=== PATIENT | female | born 1970 | race Caucasian/White ===

== ENCOUNTER → 2019-01-10 | Outpatient (CLI) | payer OTHER ==
[2013-07-09 14:47] VITALS: BP 96/62
[~2019-01-10] MED LIST: ABILIFY5 MG PO; AIMOVIG AU70 MG/1 ML SQ; CORGARD40 MG PO; CYCLOBENZAPRINE10 M1 PO; KETOROLAC TROME10 MG PO; LAMICTAL200 MG PO; LEXAPRO20 MG PO; MELATIN 3 MG-11 TAB PO; METHOCARBAMOL500 MG PO; METOPROLOL SUC100 M1 PO; NATURE'S BLEND400 I1 PO; NEURONTIN400 M1 PO; PROMETHAZINE12.5 M5 PO; RIZATRIPTAN BEN10 MG PO; ULTRAM50 M1 PO; VITAMIN B12100 MCG PO; ZANTAC 150150 MG PO; ZANTAC150 M1 PO; ZOFRAN4 M1 PO
[2019-01-10 15:35] LABS: HEMATOCRIT 36.6 % (37.0-47.0); HEMOGLOBIN 11.1 g/dL (12.5-16.0); RED BLOOD COUNT 4.82 M/mm3 (4.10-5.30); WHITE BLOOD COUNT 11.9 K/mm3 (4.8-10.8)
[2019-01-10 15:40] LABS: RED CELL DISTRIBUTION WIDTH 18.6 % (11.5-14.5)
[2019-01-10 15:43] LABS: ALBUMIN 3.8 g/dL (3.5-5.0); CALCIUM 9.3 mg/dL (8.4-10.2); POTASSIUM 4.1 mmol/L (3.6-5.0); TOTAL BILIRUBIN 0.4 mg/dL (0.2-1.3); TOTAL PROTEIN 6.6 g/dL (6.3-8.2)
== END ==
LOC: LAB 13:49
PROVIDERS: Family Medicine
DX: G44.51 Hemicrania continua (principal)

== ENCOUNTER → 2019-01-24 | Outpatient (CLI) | payer OTHER ==
[2019-01-20 16:25] VITALS: BP 117/65
[~2019-01-24] MED LIST changes: +HYDROXYZINE HYD50 M1 PO; +KLONOPIN 1MG1 MG PO; +LAMICTAL150 MG PO; -LAMICTAL200 MG PO; +LEXAPRO20 M1 PO; +MAXALT10 M2 PO; +NATURAL IRON65 MG PO; +VITAMIN C500 M7 PO
[2019-01-24 13:10] LABS: HEMATOCRIT 37.2 % (37.0-47.0); HEMOGLOBIN 11.2 g/dL (12.5-16.0); MEAN PLATELET VOLUME 10.3 fl (7.4-10.4); RED BLOOD COUNT 4.87 M/mm3 (4.10-5.30); WHITE BLOOD COUNT 10.7 K/mm3 (4.8-10.8)
[2019-01-24 13:16] LABS: ALBUMIN 3.8 g/dL (3.5-5.0); CALCIUM 8.8 mg/dL (8.4-10.2); POTASSIUM 3.7 mmol/L (3.6-5.0); TOTAL BILIRUBIN 0.3 mg/dL (0.2-1.3); TOTAL PROTEIN 6.9 g/dL (6.3-8.2)
[2019-01-24 13:17] LABS: RED CELL DISTRIBUTION WIDTH 18.5 % (11.5-14.5)
== END ==
LOC: LAB 12:24
PROVIDERS: Family Medicine
DX: G44.51 Hemicrania continua (principal)

== ENCOUNTER → 2019-02-07 | Outpatient (CLI) | payer OTHER ==
[2019-02-03 17:00] VITALS: BP 126/76
[~2019-02-07] MED LIST changes: -HYDROXYZINE HYD50 M1 PO; -KLONOPIN 1MG1 MG PO; -LEXAPRO20 M1 PO; -MAXALT10 M2 PO; -VITAMIN C500 M7 PO
[2019-02-07 15:12] LABS: HEMATOCRIT 39.9 % (37.0-47.0); HEMOGLOBIN 12.3 g/dL (12.5-16.0); MEAN PLATELET VOLUME 10.6 fl (7.4-10.4); RED BLOOD COUNT 5.26 M/mm3 (4.10-5.30); WHITE BLOOD COUNT 13.4 K/mm3 (4.8-10.8)
[2019-02-07 15:15] LABS: ALBUMIN 4.2 g/dL (3.5-5.0); AST-SGOT 19 U/L (14-36); CALCIUM 9.4 mg/dL (8.4-10.2); CARBON DIOXIDE 26 mmol/L (22-30); GLUCOSE 95 mg/dL (65-105); SODIUM 139 mmol/L (137-145); TOTAL BILIRUBIN 0.4 mg/dL (0.2-1.3); TOTAL PROTEIN 7.2 g/dL (6.3-8.2)
[2019-02-07 15:23] LABS: ALT/SGPT < 3 U/L (9-52)
== END ==
LOC: LAB 14:11
PROVIDERS: Family Medicine
DX: G44.51 Hemicrania continua (principal); Z79.899 Other long term (current) drug therapy

== ENCOUNTER → 2019-02-17 | Outpatient (CLI) | payer OTHER ==
[2019-02-14 16:56] VITALS: BP 117/77
[~2019-02-17] MED LIST changes: +HYDROXYZINE HYD50 M1 PO; +KLONOPIN 1MG1 MG PO; +LEXAPRO20 M1 PO; +MAXALT10 M2 PO; +VITAMIN C500 M7 PO
[2019-02-17 09:14] LABS: BASO # 0.1 (0.02-0.10); EOS # 0.2 (0.04-0.40); EOS % 2.1 % (1.0-5.0); HEMATOCRIT 38.6 % (37.0-47.0); HEMOGLOBIN 11.8 g/dL (12.5-16.0); LYMPH# 3.2 (1.50-4.00); MEAN CELL VOLUME 77 fl (78-100); MEAN CORPUSCULAR HGB CONC 31 g/dL (33-37); MEAN PLATELET VOLUME 10.8 fl (7.4-10.4); MONO # 0.5 (0.20-0.80); NEU # 6.8 (1.40-6.50); PLATELET COUNT 258 K/mm3 (130-400); RED BLOOD COUNT 5.04 M/mm3 (4.10-5.30); WHITE BLOOD COUNT 10.7 K/mm3 (4.8-10.8)
[2019-02-17 09:28] LABS: ALBUMIN 4.1 g/dL (3.5-5.0); CALCIUM 9.3 mg/dL (8.4-10.2); TOTAL BILIRUBIN 0.3 mg/dL (0.2-1.3); TOTAL PROTEIN 7.2 g/dL (6.3-8.2)
[2019-02-17 09:37] LABS: MEAN CORPUSCULAR HEMOGLOBIN 23 pg (27-31); RED CELL DISTRIBUTION WIDTH 18.1 % (11.5-14.5)
== END ==
LOC: LAB 08:20
PROVIDERS: Family Medicine
DX: G44.51 Hemicrania continua (principal); Z79.899 Other long term (current) drug therapy

== ENCOUNTER → 2019-03-03 | Outpatient (CLI) | payer OTHER ==
[2019-02-28 16:37] VITALS: BP 116/71
[2019-03-03 15:09] LABS: HEMATOCRIT 38.1 % (37.0-47.0); HEMOGLOBIN 11.7 g/dL (12.5-16.0); MEAN PLATELET VOLUME 10.3 fl (7.4-10.4); RED BLOOD COUNT 4.93 M/mm3 (4.10-5.30); RED CELL DISTRIBUTION WIDTH 17.7 % (11.5-14.5); WHITE BLOOD COUNT 13.2 K/mm3 (4.8-10.8)
[2019-03-03 15:56] LABS: CALCIUM 9.5 mg/dL (8.4-10.2); POTASSIUM 4.2 mmol/L (3.6-5.0); TOTAL BILIRUBIN 0.4 mg/dL (0.2-1.3); TOTAL PROTEIN 7.1 g/dL (6.3-8.2)
== END ==
LOC: LAB 14:08
PROVIDERS: Family Medicine
DX: G44.51 Hemicrania continua (principal)

== ENCOUNTER → 2019-03-15 | Outpatient (CLI) | payer OTHER ==
[2019-03-10 14:04] VITALS: BP 125/76
[2019-03-15 14:56] LABS: HEMATOCRIT 41.8 % (37.0-47.0); HEMOGLOBIN 12.6 g/dL (12.5-16.0); MEAN PLATELET VOLUME 10.4 fl (7.4-10.4); RED BLOOD COUNT 5.39 M/mm3 (4.10-5.30); RED CELL DISTRIBUTION WIDTH 17.3 % (11.5-14.5); WHITE BLOOD COUNT 16.9 K/mm3 (4.8-10.8)
[2019-03-15 15:01] LABS: CALCIUM 8.9 mg/dL (8.4-10.2); POTASSIUM 4.4 mmol/L (3.6-5.0); TOTAL BILIRUBIN 0.4 mg/dL (0.2-1.3); TOTAL PROTEIN 7.2 g/dL (6.3-8.2)
== END ==
LOC: LAB 13:53
PROVIDERS: Family Medicine
DX: Z79.899 Other long term (current) drug therapy (principal)

== ENCOUNTER → 2019-03-29 | Outpatient (CLI) | payer OTHER ==
[2019-03-24 16:30] VITALS: BP 112/76
[~2019-03-29] MED LIST changes: +VICTOZA 3-0.6 MG/0.1 SQ
[2019-03-29 15:32] LABS: ALBUMIN 4.4 g/dL (3.5-5.0); CALCIUM 9.5 mg/dL (8.4-10.2); POTASSIUM 3.9 mmol/L (3.6-5.0); TOTAL BILIRUBIN 0.6 mg/dL (0.2-1.3); TOTAL PROTEIN 7.7 g/dL (6.3-8.2)
[2019-03-29 15:43] LABS: HEMATOCRIT 42.9 % (37.0-47.0); HEMOGLOBIN 13.2 g/dL (12.5-16.0); MEAN PLATELET VOLUME 10.4 fl (7.4-10.4); RED BLOOD COUNT 5.49 M/mm3 (4.10-5.30); RED CELL DISTRIBUTION WIDTH 17.1 % (11.5-14.5); WHITE BLOOD COUNT 12.1 K/mm3 (4.8-10.8)
== END ==
LOC: LAB 14:03
PROVIDERS: Family Medicine
DX: G44.51 Hemicrania continua (principal)

== ENCOUNTER 2019-04-07 13:58 | Outpatient (RCR) | payer OTHER ==
[2019-01-10 14:07] VITALS: BP 109/89
[2019-01-10 16:45] VITALS: BP 115/71
[2019-01-13 13:56] VITALS: BP 132/85
[2019-01-13 16:04] VITALS: BP 144/83
[2019-01-17 14:22] VITALS: BP 135/85
[2019-01-17 17:01] VITALS: BP 133/86
[2019-01-20 14:15] VITALS: BP 120/68
[2019-01-20 16:25] VITALS: BP 117/65
[2019-01-24 13:06] VITALS: BP 122/64
[2019-01-24 14:55] VITALS: BP 125/77
[2019-01-31 15:30] VITALS: BP 142/88
[2019-01-31 18:01] VITALS: BP 132/85
[2019-02-03 15:07] VITALS: BP 110/66
[2019-02-03 16:54] LABS: HEMATOCRIT 38.7 % (37.0-47.0); HEMOGLOBIN 11.6 g/dL (12.5-16.0); MEAN PLATELET VOLUME 11.3 fl (7.4-10.4); RED BLOOD COUNT 5.03 M/mm3 (4.10-5.30); RED CELL DISTRIBUTION WIDTH 17.9 % (11.5-14.5); WHITE BLOOD COUNT 14.7 K/mm3 (4.8-10.8)
[2019-02-03 16:56] LABS: CALCIUM 9.1 mg/dL (8.4-10.2); POTASSIUM 4.1 mmol/L (3.6-5.0); TOTAL BILIRUBIN 0.4 mg/dL (0.2-1.3); TOTAL PROTEIN 7.1 g/dL (6.3-8.2)
[2019-02-03 17:00] VITALS: BP 126/76
[2019-02-07 14:25] VITALS: BP 138/78
[2019-02-07 17:25] VITALS: BP 116/67
[2019-02-10 15:02] VITALS: BP 131/90
[2019-02-10 17:16] VITALS: BP 114/72
[2019-02-14 15:20] VITALS: BP 125/78
[2019-02-14 16:56] VITALS: BP 117/77
[2019-02-17 08:30] VITALS: BP 130/78
[2019-02-17 10:45] VITALS: BP 132/83
[2019-02-22 14:16] VITALS: BP 119/77
[2019-02-22 15:57] VITALS: BP 125/79
[2019-02-24 15:31] VITALS: BP 128/68
[2019-02-24 17:21] VITALS: BP 131/72
[2019-02-28 14:46] VITALS: BP 118/73
[2019-02-28 16:37] VITALS: BP 116/71
[2019-03-03 14:19] VITALS: BP 137/79
[2019-03-03 17:00] VITALS: BP 129/76
[2019-03-07 14:51] VITALS: BP 127/95
[2019-03-10 14:04] VITALS: BP 125/76
[2019-03-15 14:15] VITALS: BP 140/90
[2019-03-15 14:20] VITALS: BP 140/89
[2019-03-15 17:00] VITALS: BP 136/78
[2019-03-17 16:30] VITALS: BP 129/79
[2019-03-17 18:30] VITALS: BP 118/72
[2019-03-17 19:45] VITALS: BP 112/69
[2019-03-21 14:09] VITALS: BP 137/80
[2019-03-21 16:00] VITALS: BP 116/66
[2019-03-24 14:49] VITALS: BP 132/82
[2019-03-24 16:30] VITALS: BP 112/76
[2019-03-29 14:15] VITALS: BP 139/85
[2019-03-29 16:25] VITALS: BP 124/76
[2019-04-01 14:14] VITALS: BP 125/74
[2019-04-01 16:38] VITALS: BP 133/64
[2019-04-04 15:13] VITALS: BP 129/86
[2019-04-04 15:14] VITALS: BP 129/86
[2019-04-04 17:18] VITALS: BP 125/81
[~2019-04-07] VITALS: Ht 167.6 cm; Wt 100.0 kg
[2019-04-07 14:11] VITALS: BP 135/83
[2019-04-07 16:30] VITALS: BP 137/72
== END 2019-04-10 | disposition still patient (30) ==
LOC: AMSURD
PROVIDERS: Family Medicine
DX: G44.51 Hemicrania continua (principal)
CPT/HCPCS: J1200; J1644; J1885; J2550; J3475; J7040

== ENCOUNTER → 2019-04-11 | Outpatient (CLI) | payer OTHER ==
[2019-04-07 16:30] VITALS: BP 137/72
[2019-04-11 16:12] LABS: HEMATOCRIT 42.9 % (37.0-47.0); HEMOGLOBIN 13.1 g/dL (12.5-16.0); MEAN PLATELET VOLUME 10.6 fl (7.4-10.4); RED BLOOD COUNT 5.44 M/mm3 (4.10-5.30); RED CELL DISTRIBUTION WIDTH 16.8 % (11.5-14.5); WHITE BLOOD COUNT 12.8 K/mm3 (4.8-10.8)
[2019-04-11 16:22] LABS: ALBUMIN 3.9 g/dL (3.5-5.0); CALCIUM 9.8 mg/dL (8.4-10.2); POTASSIUM 4.4 mmol/L (3.5-5.1); TOTAL BILIRUBIN 0.4 mg/dL (0.2-1.2); TOTAL PROTEIN 7.4 g/dL (6.4-8.3)
== END ==
LOC: LAB 14:08
PROVIDERS: Family Medicine
DX: G44.51 Hemicrania continua (principal)

== ENCOUNTER → 2019-04-26 | Outpatient (CLI) | payer OTHER ==
[2019-04-21 16:38] VITALS: BP 102/64
[2019-04-26 16:17] LABS: BASO # 0.1 (0.02-0.10); EOS # 0.3 (0.04-0.40); EOS % 2.2 % (1.0-5.0); HEMATOCRIT 41.3 % (37.0-47.0); HEMOGLOBIN 12.9 g/dL (12.5-16.0); LYMPH# 3.7 (1.50-4.00); MEAN CELL VOLUME 79 fl (78-100); MEAN CORPUSCULAR HEMOGLOBIN 25 pg (27-31); MEAN CORPUSCULAR HGB CONC 31 g/dL (33-37); MEAN PLATELET VOLUME 10.7 fl (7.4-10.4); MONO # 0.6 (0.20-0.80); NEU # 7.3 (1.40-6.50); PLATELET COUNT 276 K/mm3 (130-400); RED BLOOD COUNT 5.25 M/mm3 (4.10-5.30); RED CELL DISTRIBUTION WIDTH 16.9 % (11.5-14.5)
[2019-04-26 16:44] LABS: ALBUMIN 3.7 g/dL (3.5-5.0); CALCIUM 9.5 mg/dL (8.4-10.2); POTASSIUM 3.9 mmol/L (3.5-5.1); TOTAL BILIRUBIN 0.2 mg/dL (0.2-1.2); TOTAL PROTEIN 6.1 g/dL (6.4-8.3)
== END ==
LOC: LAB 15:30
PROVIDERS: Family Medicine
DX: G44.51 Hemicrania continua (principal)

== ENCOUNTER → 2019-05-09 | Outpatient (CLI) | payer OTHER ==
[2019-05-05 16:12] VITALS: BP 125/80
[2019-05-09 14:58] LABS: BASO # 0.1 (0.02-0.10); EOS # 0.2 (0.04-0.40); EOS % 2.6 % (1.0-5.0); HEMATOCRIT 40.4 % (37.0-47.0); HEMOGLOBIN 12.4 g/dL (12.5-16.0); LYMPH# 2.9 (1.50-4.00); MEAN CELL VOLUME 80 fl (78-100); MEAN CORPUSCULAR HEMOGLOBIN 25 pg (27-31); MEAN CORPUSCULAR HGB CONC 31 g/dL (33-37); MEAN PLATELET VOLUME 10.9 fl (7.4-10.4); MONO # 0.5 (0.20-0.80); NEU # 5.1 (1.40-6.50); PLATELET COUNT 287 K/mm3 (130-400); RED BLOOD COUNT 5.04 M/mm3 (4.10-5.30); WHITE BLOOD COUNT 8.9 K/mm3 (4.8-10.8)
[2019-05-09 15:18] LABS: ALBUMIN 3.7 g/dL (3.5-5.0); CALCIUM 9.4 mg/dL (8.3-10.5); POTASSIUM 3.7 mmol/L (3.5-5.1); TOTAL BILIRUBIN 0.3 mg/dL (0.2-1.2); TOTAL PROTEIN 6.6 g/dL (6.4-8.3)
== END ==
LOC: AMSURD 14:14 → LAB 14:14
PROVIDERS: Family Medicine
DX: G44.51 Hemicrania continua (principal)

== ENCOUNTER → 2019-05-23 | Outpatient (CLI) | payer OTHER ==
[2019-05-19 17:18] VITALS: BP 123/74
[2019-05-23 16:31] LABS: BASO # 0.1 (0.02-0.10); EOS # 0.3 (0.04-0.40); EOS % 2.3 % (1.0-5.0); HEMATOCRIT 37.4 % (37.0-47.0); HEMOGLOBIN 11.5 g/dL (12.5-16.0); LYMPH# 3.6 (1.50-4.00); MEAN CELL VOLUME 80 fl (78-100); MEAN CORPUSCULAR HEMOGLOBIN 25 pg (27-31); MEAN CORPUSCULAR HGB CONC 31 g/dL (33-37); MEAN PLATELET VOLUME 10.5 fl (7.4-10.4); MONO # 0.9 (0.20-0.80); NEU # 7.5 (1.40-6.50); PLATELET COUNT 242 K/mm3 (130-400); RED BLOOD COUNT 4.65 M/mm3 (4.10-5.30); WHITE BLOOD COUNT 12.4 K/mm3 (4.8-10.8)
[2019-05-23 16:52] LABS: ALBUMIN 3.6 g/dL (3.5-5.0)
[2019-05-23 16:53] LABS: POTASSIUM 4.2 mmol/L (3.5-5.1)
[2019-05-23 16:54] LABS: CALCIUM 9.6 mg/dL (8.3-10.5)
[2019-05-23 16:55] LABS: TOTAL PROTEIN 6.6 g/dL (6.4-8.3)
[2019-05-23 16:57] LABS: TOTAL BILIRUBIN 0.3 mg/dL (0.2-1.2)
== END ==
LOC: LAB 14:51
PROVIDERS: Family Medicine
DX: G44.51 Hemicrania continua (principal)

== ENCOUNTER → 2019-06-10 | Outpatient (CLI) | payer OTHER ==
[2019-06-03 18:20] VITALS: BP 111/67
[2019-06-10 15:21] LABS: HEMATOCRIT 37.4 % (37.0-47.0); HEMOGLOBIN 11.6 g/dL (12.5-16.0); MEAN PLATELET VOLUME 10.2 fl (7.4-10.4); RED BLOOD COUNT 4.66 M/mm3 (4.10-5.30); RED CELL DISTRIBUTION WIDTH 15.5 % (11.5-14.5); WHITE BLOOD COUNT 9.3 K/mm3 (4.8-10.8)
[2019-06-10 15:23] LABS: ALBUMIN 3.8 g/dL (3.5-5.0)
[2019-06-10 15:24] LABS: POTASSIUM 3.9 mmol/L (3.5-5.1)
[2019-06-10 15:25] LABS: CALCIUM 9.5 mg/dL (8.3-10.5)
[2019-06-10 15:26] LABS: TOTAL PROTEIN 6.7 g/dL (6.4-8.3)
[2019-06-10 15:28] LABS: TOTAL BILIRUBIN 0.6 mg/dL (0.2-1.2)
== END ==
LOC: LAB 14:59
PROVIDERS: Family Medicine
DX: G44.51 Hemicrania continua (principal)

== ENCOUNTER → 2019-06-27 | Outpatient (CLI) | payer OTHER ==
[2019-06-16 11:44] VITALS: BP 168/78
[2019-06-27 16:13] LABS: BASO # 0.1 (0.02-0.10); EOS # 0.1 (0.04-0.40); EOS % 0.9 % (1.0-5.0); HEMATOCRIT 39.5 % (37.0-47.0); HEMOGLOBIN 12.1 g/dL (12.5-16.0); LYMPH# 2.7 (1.50-4.00); MEAN CELL VOLUME 80 fl (78-100); MEAN CORPUSCULAR HEMOGLOBIN 25 pg (27-31); MEAN CORPUSCULAR HGB CONC 31 g/dL (33-37); MONO # 0.5 (0.20-0.80); NEU # 7.2 (1.40-6.50); PLATELET COUNT 265 K/mm3 (130-400); RED BLOOD COUNT 4.91 M/mm3 (4.10-5.30); RED CELL DISTRIBUTION WIDTH 14.8 % (11.5-14.5); WHITE BLOOD COUNT 10.6 K/mm3 (4.8-10.8)
[2019-06-27 16:22] LABS: POTASSIUM 3.9 mmol/L (3.5-5.1)
[2019-06-27 16:23] LABS: CALCIUM 9.4 mg/dL (8.3-10.5)
[2019-06-27 16:24] LABS: TOTAL PROTEIN 6.9 g/dL (6.4-8.3)
[2019-06-27 16:26] LABS: TOTAL BILIRUBIN 0.6 mg/dL (0.2-1.2)
== END ==
LOC: LAB 15:00
PROVIDERS: Family Medicine
DX: G44.51 Hemicrania continua (principal)

== ENCOUNTER → 2019-07-10 | Outpatient (RCR) | payer OTHER ==
[2019-04-11 14:22] VITALS: BP 121/87
--- NOTE | 2019-04-11 15:30 | NUR ---
noted to still have some mild swelling at port sight - no redness. Incision well approximated. Difficulty in obtaining blood from port today. 3/4 inch go needle inserted w/ return of serous type fluid w/ blood tinge noted by one nurse. This nurse used 1" go needle and able to access with good return of blood at first but unable to draw quick enough for lab. Lab personnel called to draw lab peripherally and pt agreeable. Right chest port flushed easily w/ NS and blood return checked again and noted right before infusions begun. Pt denies any discomforts at port site.
[2019-04-11 17:06] VITALS: BP 94/59
--- NOTE | 2019-04-11 17:10 | NUR ---
Port deassessed without difficulty and bandaid applied over site.
--- NOTE | 2019-04-11 17:10 | NUR ---
BP recheck 101/67 with sitting up.
[2019-04-14 13:50] VITALS: BP 113/70
[2019-04-14 17:45] VITALS: BP 135/89
[2019-04-18 14:25] VITALS: BP 102/60
[2019-04-18 16:10] VITALS: BP 121/78
[2019-04-21 14:50] VITALS: BP 107/47
[2019-04-21 16:38] VITALS: BP 102/64
[2019-04-26 16:04] VITALS: BP 90/47
[2019-04-26 17:50] VITALS: BP 89/55
[2019-04-28 14:08] VITALS: BP 115/79
[2019-04-28 17:50] VITALS: BP 122/82
--- NOTE | 2019-05-02 14:45 | NUR ---
Port accessed by Mary Carmen Elizondo RN. and care provided for this pt by Mary Carmen Elizondo throughout the pt stay.
[2019-05-02 16:43] VITALS: BP 99/63
[2019-05-02 17:59] VITALS: BP 110/72
[2019-05-05 14:20] VITALS: BP 133/66
--- NOTE | 2019-05-05 15:51 | NUR ---
CALL TO AT THIS TIME TO DISCUSS PATIENTS SYMPTOMS, INCREASING PAIN, INCREASE IN NEED FOR PRN PAIN CONTROL, WELL FREQUENT ER VISITS FOR PAIN INCLUDING HEADACHES AND CHEST PAIN, STATES HE IS AWARE AND IS IN CLOSE CONTACT WITH PATIENT, WE ARE TO RESUME ALL MEDS UNTIL WE HEAR DIFFERENTLY
[2019-05-05 16:12] VITALS: BP 125/80
[2019-05-09 14:11] VITALS: BP 102/70
[2019-05-09 16:22] VITALS: BP 91/55
[2019-05-13 11:49] VITALS: BP 106/65
[2019-05-13 13:40] VITALS: BP 101/51
[2019-05-16 17:13] VITALS: BP 111/65
[2019-05-16 17:51] VITALS: BP 118/72
[2019-05-19 15:23] VITALS: BP 118/66
[2019-05-19 17:18] VITALS: BP 123/74
[2019-05-23 15:06] VITALS: BP 117/81
[2019-05-23 16:49] VITALS: BP 104/65
[2019-05-23 17:18] VITALS: BP 107/68
[2019-05-23 18:32] VITALS: BP 103/67
[2019-05-26 16:15] VITALS: BP 114/68
[2019-05-26 17:11] VITALS: BP 124/68
[2019-05-30 15:46] VITALS: BP 116/74
[2019-05-30 15:48] VITALS: BP 116/74
[2019-05-30 17:36] VITALS: BP 134/80
[2019-06-03 15:10] VITALS: BP 116/67
[2019-06-03 18:20] VITALS: BP 111/67
[2019-06-10 15:10] VITALS: BP 111/68
[2019-06-10 17:25] VITALS: BP 160/74
[2019-06-13 15:05] VITALS: BP 137/84
[2019-06-13 17:33] VITALS: BP 117/71
[2019-06-16 09:39] VITALS: BP 126/80
[2019-06-16 11:44] VITALS: BP 168/78
[2019-06-27 13:00] VITALS: BP 110/65
[2019-06-27 15:00] VITALS: BP 110/65
[2019-06-27 15:30] VITALS: BP 102/59
[2019-06-27 17:30] VITALS: BP 119/72
[2019-06-30 15:30] VITALS: BP 137/85
[2019-06-30 17:50] VITALS: BP 114/71
[2019-07-04 16:11] VITALS: BP 104/61
[2019-07-04 17:55] VITALS: BP 106/63
[~2019-07-10] VITALS: Ht 167.6 cm; Wt 100.0 kg
[2019-07-10 17:59] VITALS: BP 128/79
== END | disposition still patient (30) ==
LOC: AMSURD
DX: G44.51 Hemicrania continua (principal); G43.909 Migraine, unspecified, not intractable, without status migrainosus
CPT/HCPCS: J1200; J1644; J1885; J2550; J3475; J7030; J7040

== ENCOUNTER → 2019-07-22 | Outpatient (CLI) | payer OTHER ==
[2019-07-18 18:21] VITALS: BP 90/55
[2019-07-22 09:59] LABS: HEMATOCRIT 38.6 % (37.0-47.0); HEMOGLOBIN 11.9 g/dL (12.5-16.0); RED BLOOD COUNT 4.92 M/mm3 (4.10-5.30); RED CELL DISTRIBUTION WIDTH 14.4 % (11.5-14.5); WHITE BLOOD COUNT 10.5 K/mm3 (4.8-10.8)
[2019-07-22 10:00] LABS: ALBUMIN 3.9 g/dL (3.5-5.0)
[2019-07-22 10:02] LABS: CALCIUM 9.2 mg/dL (8.3-10.5)
[2019-07-22 10:03] LABS: TOTAL PROTEIN 7.3 g/dL (6.4-8.3)
[2019-07-22 10:05] LABS: TOTAL BILIRUBIN 0.8 mg/dL (0.2-1.2)
[2019-07-22 10:12] LABS: MEAN PLATELET VOLUME 12.2 fl (7.4-10.4)
== END ==
LOC: LAB 09:06
PROVIDERS: Family Medicine
DX: G44.51 Hemicrania continua (principal)

== ENCOUNTER 2019-07-28 14:29 | Emergency (ER) | payer OTHER ==
[~2019-07-28] VITALS: Ht 167.6 cm; Wt 95.5 kg
[2019-07-28 15:23] VITALS: BP 147/83
== END 2019-07-28 16:00 | disposition home or self-care (01) ==
LOC: ED 14:29
DX: N39.0 Urinary tract infection, site not specified (principal)

== ENCOUNTER → 2019-08-04 | Outpatient (CLI) | payer OTHER ==
[2019-08-01 19:00] VITALS: BP 136/83
[2019-08-04 16:41] LABS: BASO # 0.1 (0.02-0.10); EOS # 0.1 (0.04-0.40); EOS % 1.2 % (1.0-5.0); HEMATOCRIT 39.6 % (37.0-47.0); HEMOGLOBIN 12.1 g/dL (12.5-16.0); MEAN CELL VOLUME 78 fl (78-100); MEAN CORPUSCULAR HGB CONC 31 g/dL (33-37); MEAN PLATELET VOLUME 11.9 fl (7.4-10.4); MONO # 0.7 (0.20-0.80); NEU # 6.5 (1.40-6.50); PLATELET COUNT 240 K/mm3 (130-400); RED BLOOD COUNT 5.11 M/mm3 (4.10-5.30); RED CELL DISTRIBUTION WIDTH 14.9 % (11.5-14.5); WHITE BLOOD COUNT 10.5 K/mm3 (4.8-10.8)
[2019-08-04 16:49] LABS: MEAN CORPUSCULAR HEMOGLOBIN 24 pg (27-31)
[2019-08-04 16:55] LABS: ALBUMIN 3.9 g/dL (3.5-5.0); POTASSIUM 4.2 mmol/L (3.5-5.1)
[2019-08-04 16:56] LABS: CALCIUM 9.2 mg/dL (8.3-10.5)
[2019-08-04 16:58] LABS: TOTAL PROTEIN 6.9 g/dL (6.4-8.3)
[2019-08-04 16:59] LABS: TOTAL BILIRUBIN 0.9 mg/dL (0.2-1.2)
== END ==
LOC: AMSURD 15:20
PROVIDERS: Family Medicine
DX: G44.51 Hemicrania continua (principal)

== ENCOUNTER → 2019-08-22 | Outpatient (CLI) | payer OTHER ==
[2019-08-15 18:00] VITALS: BP 114/78
[2019-08-22 15:57] LABS: POTASSIUM 3.8 mmol/L (3.5-5.1)
[2019-08-22 15:59] LABS: CALCIUM 9.3 mg/dL (8.3-10.5)
[2019-08-22 16:00] LABS: TOTAL PROTEIN 6.9 g/dL (6.4-8.3)
[2019-08-22 16:02] LABS: TOTAL BILIRUBIN 0.5 mg/dL (0.2-1.2)
[2019-08-22 16:07] LABS: HEMATOCRIT 37.9 % (37.0-47.0); HEMOGLOBIN 11.9 g/dL (12.5-16.0); RED BLOOD COUNT 5.03 M/mm3 (4.10-5.30); RED CELL DISTRIBUTION WIDTH 14.9 % (11.5-14.5)
[2019-08-22 16:15] LABS: MEAN PLATELET VOLUME 12.7 fl (7.4-10.4)
== END ==
LOC: AMSURD 15:06
PROVIDERS: Family Medicine
DX: G44.51 Hemicrania continua (principal)

== ENCOUNTER → 2019-09-05 | Outpatient (CLI) | payer OTHER ==
[2019-09-01 18:00] VITALS: BP 126/68
[2019-09-05 17:06] LABS: HEMATOCRIT 41.2 % (37.0-47.0); MEAN PLATELET VOLUME 11.6 fl (7.4-10.4); RED BLOOD COUNT 5.59 M/mm3 (4.10-5.30); RED CELL DISTRIBUTION WIDTH 15.4 % (11.5-14.5); WHITE BLOOD COUNT 12.1 K/mm3 (4.8-10.8)
[2019-09-05 17:07] LABS: ALBUMIN 4.3 g/dL (3.5-5.0)
[2019-09-05 17:08] LABS: POTASSIUM 3.5 mmol/L (3.5-5.1)
[2019-09-05 17:09] LABS: CALCIUM 9.7 mg/dL (8.3-10.5)
[2019-09-05 17:10] LABS: TOTAL PROTEIN 7.6 g/dL (6.4-8.3)
[2019-09-05 17:12] LABS: TOTAL BILIRUBIN 0.8 mg/dL (0.2-1.2)
== END ==
LOC: LAB 16:25
PROVIDERS: Family Medicine
DX: G44.51 Hemicrania continua (principal)

== ENCOUNTER → 2019-09-19 | Outpatient (CLI) | payer OTHER ==
[2019-09-15 18:26] VITALS: BP 121/73
[2019-09-19 16:35] LABS: ALBUMIN 3.7 g/dL (3.5-5.0); HEMATOCRIT 37.6 % (37.0-47.0); HEMOGLOBIN 11.4 g/dL (12.5-16.0); MEAN PLATELET VOLUME 11.3 fl (7.4-10.4); POTASSIUM 3.9 mmol/L (3.5-5.1); RED BLOOD COUNT 4.99 M/mm3 (4.10-5.30); RED CELL DISTRIBUTION WIDTH 16.4 % (11.5-14.5)
[2019-09-19 16:37] LABS: CALCIUM 9.1 mg/dL (8.3-10.5)
[2019-09-19 16:38] LABS: TOTAL PROTEIN 6.7 g/dL (6.4-8.3)
[2019-09-19 16:40] LABS: TOTAL BILIRUBIN 0.4 mg/dL (0.2-1.2)
== END ==
LOC: LAB 15:44
PROVIDERS: Family Medicine
DX: G44.51 Hemicrania continua (principal)

== ENCOUNTER → 2019-10-04 | Outpatient (CLI) | payer OTHER ==
[2019-09-30 11:20] VITALS: BP 116/70
[2019-10-04 13:34] LABS: HEMATOCRIT 38.8 % (37.0-47.0); HEMOGLOBIN 11.8 g/dL (12.5-16.0); RED BLOOD COUNT 5.29 M/mm3 (4.10-5.30); RED CELL DISTRIBUTION WIDTH 16.6 % (11.5-14.5); WHITE BLOOD COUNT 11.3 K/mm3 (4.8-10.8)
[2019-10-04 13:37] LABS: MEAN PLATELET VOLUME 12.3 fl (7.4-10.4)
[2019-10-04 13:38] LABS: ALBUMIN 3.8 g/dL (3.5-5.0)
[2019-10-04 13:39] LABS: POTASSIUM 3.8 mmol/L (3.5-5.1)
[2019-10-04 13:40] LABS: CALCIUM 9.5 mg/dL (8.3-10.5)
[2019-10-04 13:41] LABS: TOTAL PROTEIN 6.8 g/dL (6.4-8.3)
[2019-10-04 13:43] LABS: TOTAL BILIRUBIN 0.4 mg/dL (0.2-1.2)
== END ==
LOC: LAB 11:58
PROVIDERS: Nurse Practitioner Primary Care
DX: G44.51 Hemicrania continua (principal)

== ENCOUNTER 2019-10-10 14:59 | Outpatient (RCR) | payer OTHER ==
[2019-07-14 15:47] VITALS: BP 112/75
[2019-07-14 17:36] VITALS: BP 110/69
[2019-07-18 15:15] VITALS: BP 109/68
[2019-07-18 18:21] VITALS: BP 90/55
[2019-07-22 09:30] VITALS: BP 113/64
[2019-07-22 11:14] VITALS: BP 116/72
[2019-07-28 17:20] VITALS: BP 127/71
[2019-08-01 16:55] VITALS: BP 122/75
[2019-08-01 19:00] VITALS: BP 136/83
[2019-08-04 15:45] VITALS: BP 109/67
[2019-08-04 17:35] VITALS: BP 110/67
[2019-08-08 14:54] VITALS: BP 106/68
[2019-08-08 17:35] VITALS: BP 122/68
[2019-08-11 17:00] VITALS: BP 99/60
[2019-08-11 19:00] VITALS: BP 111/74
[2019-08-15 15:40] VITALS: BP 121/75
[2019-08-15 18:00] VITALS: BP 114/78
[2019-08-22 15:13] VITALS: BP 108/73
[2019-08-22 17:13] VITALS: BP 103/67
[2019-08-25 15:44] VITALS: BP 106/67
[2019-08-25 17:27] VITALS: BP 116/64
[2019-08-29 16:50] VITALS: BP 100/61
[2019-08-29 18:39] VITALS: BP 134/64
[2019-09-01 15:10] VITALS: BP 116/69
[2019-09-01 18:00] VITALS: BP 126/68
[2019-09-05 16:55] VITALS: BP 117/80
[2019-09-05 19:05] VITALS: BP 134/74
[2019-09-08 15:56] VITALS: BP 117/73
[2019-09-08 17:40] VITALS: BP 127/77
[2019-09-15 16:27] VITALS: BP 125/78
[2019-09-15 18:26] VITALS: BP 121/73
[2019-09-19 16:00] VITALS: BP 121/72
[2019-09-19 18:12] VITALS: BP 127/78
[2019-09-22 15:17] VITALS: BP 136/78
[2019-09-26 10:56] VITALS: BP 133/75
[2019-09-26 12:54] VITALS: BP 115/69
[2019-09-30 11:20] VITALS: BP 116/70
[2019-10-04 12:30] VITALS: BP 117/63
[2019-10-04 14:29] VITALS: BP 94/55
[2019-10-06 14:06] VITALS: BP 101/73
[~2019-10-10] VITALS: Ht 167.6 cm; Wt 100.0 kg
[2019-10-10 15:22] VITALS: BP 99/64
[2019-10-10] MEDS ORDERED: EMGALITY120 MG/1 M SQ ×2 (15:36→15:37)
[2019-10-10 17:11] VITALS: BP 105/66
== END 2019-10-12 | disposition still patient (30) ==
LOC: AMSURD
DX: G43.909 Migraine, unspecified, not intractable, without status migrainosus (principal); G44.51 Hemicrania continua; Z79.899 Other long term (current) drug therapy
CPT/HCPCS: J1200; J1644; J1885; J2550; J3475; J7040

== ENCOUNTER → 2019-10-20 | Outpatient (CLI) | payer OTHER ==
[2019-10-14 13:22] VITALS: BP 116/67
[~2019-10-20] MED LIST changes: +EMGALITY120 MG/1 M SQ
[2019-10-20 15:16] LABS: BASO # 0.1 (0.02-0.10); EOS # 0.2 (0.04-0.40); EOS % 1.9 % (1.0-5.0); HEMATOCRIT 34.1 % (37.0-47.0); HEMOGLOBIN 10.4 g/dL (12.5-16.0); LYMPH# 3.4 (1.50-4.00); MEAN CELL VOLUME 73 fl (78-100); MEAN CORPUSCULAR HGB CONC 31 g/dL (33-37); MEAN PLATELET VOLUME 11.1 fl (7.4-10.4); MONO # 0.6 (0.20-0.80); NEU # 4.5 (1.40-6.50); PLATELET COUNT 201 K/mm3 (130-400); RED BLOOD COUNT 4.67 M/mm3 (4.10-5.30); RED CELL DISTRIBUTION WIDTH 17.1 % (11.5-14.5); WHITE BLOOD COUNT 8.6 K/mm3 (4.8-10.8)
[2019-10-20 15:21] LABS: MEAN CORPUSCULAR HEMOGLOBIN 22 pg (27-31)
[2019-10-20 15:55] LABS: ALBUMIN 3.4 g/dL (3.5-5.0); POTASSIUM 3.3 mmol/L (3.5-5.1)
[2019-10-20 15:57] LABS: CALCIUM 7.6 mg/dL (8.3-10.5)
[2019-10-20 15:58] LABS: TOTAL PROTEIN 5.7 g/dL (6.4-8.3)
[2019-10-20 16:00] LABS: TOTAL BILIRUBIN 0.5 mg/dL (0.2-1.2)
== END ==
LOC: LAB 14:34
PROVIDERS: Family Medicine
DX: G44.51 Hemicrania continua (principal)

== ENCOUNTER → 2019-11-07 | Outpatient (CLI) | payer OTHER ==
[2019-10-29 13:03] VITALS: BP 135/79
[2019-11-07 20:39] LABS: HEMOGLOBIN 11.9 g/dL (12.5-16.0); RED BLOOD COUNT 5.32 M/mm3 (4.10-5.30); RED CELL DISTRIBUTION WIDTH 17.8 % (11.5-14.5); WHITE BLOOD COUNT 12.4 K/mm3 (4.8-10.8)
[2019-11-07 20:45] LABS: CALCIUM 9.4 mg/dL (8.3-10.5)
[2019-11-07 20:46] LABS: TOTAL PROTEIN 6.7 g/dL (6.4-8.3)
[2019-11-07 20:48] LABS: TOTAL BILIRUBIN 0.4 mg/dL (0.2-1.2)
[2019-11-07 21:17] LABS: MEAN PLATELET VOLUME 12.6 fl (7.4-10.4)
== END ==
LOC: LAB 15:11
PROVIDERS: Nurse Practitioner Primary Care
DX: G44.51 Hemicrania continua (principal)

== ENCOUNTER → 2019-12-05 | Outpatient (CLI) | payer OTHER ==
[2019-12-02 11:12] VITALS: BP 113/67
[~2019-12-05] MED LIST changes: +HALOPERIDOL10 M1 PO
[2019-12-05 16:15] LABS: BASO # 0.1 (0.02-0.10); EOS # 0.2 (0.04-0.40); EOS % 1.3 % (1.0-5.0); HEMATOCRIT 38.5 % (37.0-47.0); HEMOGLOBIN 11.7 g/dL (12.5-16.0); LYMPH# 3.6 (1.50-4.00); MEAN CELL VOLUME 75 fl (78-100); MEAN CORPUSCULAR HGB CONC 30 g/dL (33-37); MEAN PLATELET VOLUME 11.4 fl (7.4-10.4); MONO # 0.8 (0.20-0.80); PLATELET COUNT 241 K/mm3 (130-400); RED BLOOD COUNT 5.11 M/mm3 (4.10-5.30); WHITE BLOOD COUNT 15.7 K/mm3 (4.8-10.8)
[2019-12-05 16:18] LABS: MEAN CORPUSCULAR HEMOGLOBIN 23 pg (27-31)
[2019-12-05 16:24] LABS: ALBUMIN 3.6 g/dL (3.5-5.0)
[2019-12-05 16:25] LABS: POTASSIUM 3.7 mmol/L (3.5-5.1)
[2019-12-05 16:26] LABS: CALCIUM 8.8 mg/dL (8.3-10.5)
[2019-12-05 16:27] LABS: TOTAL PROTEIN 6.7 g/dL (6.4-8.3)
[2019-12-05 16:29] LABS: TOTAL BILIRUBIN 0.5 mg/dL (0.2-1.2)
== END ==
LOC: LAB 15:04
PROVIDERS: Nurse Practitioner Primary Care
DX: G44.51 Hemicrania continua (principal); Z79.899 Other long term (current) drug therapy

== ENCOUNTER → 2019-12-19 | Outpatient (CLI) | payer OTHER ==
[2019-12-15 18:17] VITALS: BP 103/70
[2019-12-19 15:54] LABS: EOS # 0.2 (0.04-0.40); EOS % 1.6 % (1.0-5.0); HEMATOCRIT 38.6 % (37.0-47.0); HEMOGLOBIN 11.9 g/dL (12.5-16.0); LYMPH# 3.2 (1.50-4.00); MEAN CELL VOLUME 75 fl (78-100); MEAN CORPUSCULAR HGB CONC 31 g/dL (33-37); MEAN PLATELET VOLUME 10.6 fl (7.4-10.4); MONO # 0.5 (0.20-0.80); NEU # 6.5 (1.40-6.50); PLATELET COUNT 244 K/mm3 (130-400); RED BLOOD COUNT 5.18 M/mm3 (4.10-5.30); RED CELL DISTRIBUTION WIDTH 17.7 % (11.5-14.5); WHITE BLOOD COUNT 10.3 K/mm3 (4.8-10.8)
[2019-12-19 16:00] LABS: MEAN CORPUSCULAR HEMOGLOBIN 23 pg (27-31)
[2019-12-19 16:04] LABS: ALBUMIN 3.8 g/dL (3.5-5.0); POTASSIUM 3.8 mmol/L (3.5-5.1)
[2019-12-19 16:05] LABS: CALCIUM 8.4 mg/dL (8.3-10.5)
[2019-12-19 16:07] LABS: TOTAL PROTEIN 6.9 g/dL (6.4-8.3)
[2019-12-19 16:08] LABS: TOTAL BILIRUBIN 0.7 mg/dL (0.2-1.2)
== END ==
LOC: LAB 15:20
PROVIDERS: Family Medicine
DX: G44.51 Hemicrania continua (principal)

== ENCOUNTER → 2020-01-02 | Outpatient (CLI) | payer OTHER ==
[2019-12-29 17:14] VITALS: BP 125/77
[~2020-01-02] MED LIST changes: +AUGMENTIN 875-1 EAC1 PO; +COMPAZINE10 M2 PO
[2020-01-02 17:20] LABS: BASO # 0.1 (0.02-0.10); EOS # 0.1 (0.04-0.40); HEMOGLOBIN 12.1 g/dL (12.5-16.0); LYMPH# 2.6 (1.50-4.00); MEAN CELL VOLUME 75 fl (78-100); MEAN CORPUSCULAR HGB CONC 31 g/dL (33-37); MONO # 0.8 (0.20-0.80); PLATELET COUNT 244 K/mm3 (130-400); RED BLOOD COUNT 5.17 M/mm3 (4.10-5.30); RED CELL DISTRIBUTION WIDTH 17.3 % (11.5-14.5); WHITE BLOOD COUNT 13.6 K/mm3 (4.8-10.8)
[2020-01-02 17:25] LABS: POTASSIUM 4.1 mmol/L (3.5-5.1)
[2020-01-02 17:26] LABS: CALCIUM 9.3 mg/dL (8.3-10.5)
[2020-01-02 17:28] LABS: TOTAL PROTEIN 6.9 g/dL (6.4-8.3)
[2020-01-02 17:29] LABS: TOTAL BILIRUBIN 0.6 mg/dL (0.2-1.2)
[2020-01-02 17:37] LABS: MEAN CORPUSCULAR HEMOGLOBIN 23 pg (27-31); MEAN PLATELET VOLUME 12.2 fl (7.4-10.4)
== END ==
LOC: LAB 15:00
PROVIDERS: Family Medicine
DX: G44.51 Hemicrania continua (principal)

== ENCOUNTER 2020-01-03 04:39 | Emergency (ER) | payer OTHER ==
[~2020-01-03] VITALS: Ht 167.6 cm; Wt 86.4 kg
[~2020-01-03 04:39] MED LIST changes: -AUGMENTIN 875-1 EAC1 PO; -COMPAZINE10 M2 PO
[2020-01-03] MEDS ORDERED: COMPAZINE10 M2 PO (04:49)
[2020-01-03] MEDS ORDERED: AUGMENTIN 875-1 EAC1 PO (05:29)
[2020-01-03 05:38] VITALS: BP 108/74
== END 2020-01-03 05:38 | disposition home or self-care (01) ==
LOC: ED 04:39
DX: J32.9 Chronic sinusitis, unspecified (principal); G43.909 Migraine, unspecified, not intractable, without status migrainosus; F41.0 Panic disorder [episodic paroxysmal anxiety]
CPT/HCPCS: J1885

== ENCOUNTER → 2020-01-12 | Outpatient (RCR) | payer OTHER ==
[2019-10-14 11:17] VITALS: BP 109/65
[2019-10-14 13:22] VITALS: BP 116/67
[2019-10-20 14:55] VITALS: BP 100/60
[2019-10-20 17:03] VITALS: BP 111/59
[2019-10-24 15:00] VITALS: BP 114/71
[2019-10-24 17:30] VITALS: BP 122/65
[2019-10-29 11:03] VITALS: BP 113/75
[2019-10-29 13:03] VITALS: BP 135/79
[2019-11-07 15:56] VITALS: BP 126/79
[2019-11-07 17:58] VITALS: BP 115/83
[2019-11-10 15:45] VITALS: BP 125/64
[2019-11-10 16:25] VITALS: BP 126/82
[2019-11-10 17:00] VITALS: BP 132/68
[2019-11-17 14:19] VITALS: BP 116/72
[2019-11-17 16:17] VITALS: BP 117/87
[2019-11-21 15:15] VITALS: BP 104/71
[2019-11-21 15:40] LABS: HEMATOCRIT 41.2 % (37.0-47.0); HEMOGLOBIN 12.5 g/dL (12.5-16.0); MEAN PLATELET VOLUME 11.4 fl (7.4-10.4); RED BLOOD COUNT 5.56 M/mm3 (4.10-5.30)
[2019-11-21 15:45] LABS: CALCIUM 9.2 mg/dL (8.3-10.5)
[2019-11-21 15:48] LABS: TOTAL BILIRUBIN 0.7 mg/dL (0.2-1.2)
[2019-11-21 16:53] LABS: RED CELL DISTRIBUTION WIDTH 18.3 % (11.5-14.5)
[2019-11-21 17:17] VITALS: BP 110/68
[2019-11-25 11:28] VITALS: BP 124/87
[2019-11-25 13:18] VITALS: BP 136/72
[2019-12-02 11:12] VITALS: BP 113/67
[2019-12-05 15:30] VITALS: BP 109/72
[2019-12-08 15:20] VITALS: BP 117/71
[2019-12-08 17:15] VITALS: BP 114/71
[2019-12-13 17:24] VITALS: BP 113/79
[2019-12-13 19:10] VITALS: BP 100/66
[2019-12-15 16:27] VITALS: BP 119/74
[2019-12-15 18:17] VITALS: BP 103/70
[2019-12-19 16:25] VITALS: BP 127/81
[2019-12-19 17:45] VITALS: BP 107/72
[2019-12-23 10:37] VITALS: BP 111/70
[2019-12-23 12:13] VITALS: BP 115/68
[2019-12-29 15:37] VITALS: BP 120/79
[2019-12-29 17:14] VITALS: BP 125/77
[2020-01-02 15:30] VITALS: BP 117/72
[2020-01-02 16:00] VITALS: BP 106/67
[2020-01-02 16:37] VITALS: BP 117/72
[2020-01-02 18:00] VITALS: BP 108/70
[2020-01-09 15:45] VITALS: BP 108/52
[2020-01-09 16:23] VITALS: BP 113/66
[2020-01-09 17:40] VITALS: BP 123/74
[~2020-01-12] VITALS: Ht 167.6 cm; Wt 90.9 kg
[~2020-01-12] MED LIST changes: +AUGMENTIN 875-1 EAC1 PO; +COMPAZINE10 M2 PO
[2020-01-12 11:03] VITALS: BP 100/67
[2020-01-12 12:41] VITALS: BP 114/69
== END | disposition still patient (30) ==
LOC: AMSURD
PROVIDERS: Family Medicine
DX: G43.909 Migraine, unspecified, not intractable, without status migrainosus (principal); G44.51 Hemicrania continua
CPT/HCPCS: J0780; J1200; J1644; J1885; J2550; J3475; J7040

== ENCOUNTER → 2020-01-23 | Outpatient (CLI) | payer OTHER ==
[2020-01-12 12:41] VITALS: BP 114/69
[2020-01-23 11:25] LABS: HEMATOCRIT 40.9 % (37.0-47.0); HEMOGLOBIN 12.4 g/dL (12.5-16.0); MEAN PLATELET VOLUME 11.2 fl (7.4-10.4); RED BLOOD COUNT 5.29 M/mm3 (4.10-5.30); RED CELL DISTRIBUTION WIDTH 17.5 % (11.5-14.5); WHITE BLOOD COUNT 7.7 K/mm3 (4.8-10.8)
[2020-01-23 11:31] LABS: ALBUMIN 3.9 g/dL (3.5-5.0)
[2020-01-23 11:33] LABS: CALCIUM 9.1 mg/dL (8.3-10.5)
[2020-01-23 11:34] LABS: TOTAL PROTEIN 6.8 g/dL (6.4-8.3)
[2020-01-23 11:36] LABS: TOTAL BILIRUBIN 0.5 mg/dL (0.2-1.2)
== END ==
LOC: LAB 11:05
DX: G44.51 Hemicrania continua (principal)

== ENCOUNTER 2020-01-30 11:57 | Outpatient (RCR) | payer OTHER ==
[2020-01-23 11:18] VITALS: BP 103/63
[2020-01-23 13:15] VITALS: BP 116/72
[2020-01-26 15:18] VITALS: BP 129/86
[~2020-01-30] VITALS: Ht 167.6 cm; Wt 90.9 kg
[2020-01-30 12:25] VITALS: BP 104/72
[2020-01-30 14:30] VITALS: BP 104/71
== END 2020-02-03 14:35 | disposition still patient (30) ==
LOC: AMSURD 11:57
DX: G44.51 Hemicrania continua (principal); Z79.899 Other long term (current) drug therapy
CPT/HCPCS: J0780; J1200; J1644; J3475

== ENCOUNTER 2020-02-27 14:00 | Outpatient (RCR) | payer OTHER ==
[2020-02-13 12:25] VITALS: BP 108/79
[2020-02-13 14:24] VITALS: BP 108/72
[~2020-02-27] VITALS: Ht 167.6 cm; Wt 90.9 kg
[2020-02-27 14:54] VITALS: BP 105/73
[2020-02-27 16:39] VITALS: BP 118/84
== END 2020-03-23 11:55 | disposition still patient (30) ==
LOC: AMSURD 14:00
DX: G44.51 Hemicrania continua (principal); Z79.899 Other long term (current) drug therapy
CPT/HCPCS: J0780; J1200; J1644; J1885; J3475

== ENCOUNTER → 2020-03-23 | Outpatient (CLI) | payer OTHER ==
[2020-02-27 16:39] VITALS: BP 118/84
[2020-03-23 11:45] LABS: HEMATOCRIT 41.1 % (37.0-47.0); HEMOGLOBIN 12.9 g/dL (12.5-16.0); MEAN PLATELET VOLUME 11.3 fl (7.4-10.4); RED BLOOD COUNT 5.3 M/mm3 (4.10-5.30); RED CELL DISTRIBUTION WIDTH 16.1 % (11.5-14.5); WHITE BLOOD COUNT 10.8 K/mm3 (4.8-10.8)
[2020-03-23 11:55] LABS: ALBUMIN 3.9 g/dL (3.5-5.0); POTASSIUM 3.7 mmol/L (3.5-5.1)
[2020-03-23 11:56] LABS: CALCIUM 9.1 mg/dL (8.3-10.5)
[2020-03-23 11:57] LABS: TOTAL PROTEIN 6.9 g/dL (6.4-8.3)
[2020-03-23 11:59] LABS: TOTAL BILIRUBIN 0.7 mg/dL (0.2-1.2)
== END ==
LOC: LAB 11:06
PROVIDERS: Family Medicine
DX: G44.51 Hemicrania continua (principal); Z79.899 Other long term (current) drug therapy

== ENCOUNTER 2020-04-05 15:30 | Outpatient (RCR) | payer OTHER ==
[2020-03-23 11:56] VITALS: BP 110/72
[2020-03-23 13:45] VITALS: BP 106/70
[~2020-04-05] VITALS: Ht 167.6 cm; Wt 90.9 kg
[2020-04-05 15:48] VITALS: BP 107/69
[2020-04-05 16:51] VITALS: BP 98/54
== END 2020-04-05 16:00 | disposition home or self-care (01) ==
LOC: AMSURD 15:30
DX: G44.51 Hemicrania continua (principal); Z79.899 Other long term (current) drug therapy
CPT/HCPCS: J0780; J1200; J1644; J1885; J3475; J7040

== ENCOUNTER → 2020-04-12 | Outpatient (CLI) | payer OTHER ==
[2020-04-05 16:51] VITALS: BP 98/54
[2020-04-12 11:21] LABS: HEMATOCRIT 39.7 % (37.0-47.0); HEMOGLOBIN 12.4 g/dL (12.5-16.0); MEAN PLATELET VOLUME 11.1 fl (7.4-10.4); RED CELL DISTRIBUTION WIDTH 16.7 % (11.5-14.5); WHITE BLOOD COUNT 10.7 K/mm3 (4.8-10.8)
[2020-04-12 11:30] LABS: POTASSIUM 4.2 mmol/L (3.5-5.1)
[2020-04-12 11:31] LABS: CALCIUM 8.8 mg/dL (8.3-10.5)
[2020-04-12 11:32] LABS: TOTAL PROTEIN 6.6 g/dL (6.4-8.3)
[2020-04-12 11:34] LABS: TOTAL BILIRUBIN 0.4 mg/dL (0.2-1.2)
== END ==
LOC: LAB 10:51
PROVIDERS: Family Medicine
DX: G44.51 Hemicrania continua (principal); Z79.899 Other long term (current) drug therapy

== ENCOUNTER → 2020-04-25 | Outpatient (CLI) | payer OTHER ==
[2020-04-12 13:00] VITALS: BP 130/96
[2020-04-25 14:42] LABS: HEMATOCRIT 39.9 % (37.0-47.0); HEMOGLOBIN 12.4 g/dL (12.5-16.0); MEAN PLATELET VOLUME 11.8 fl (7.4-10.4); RED BLOOD COUNT 5.02 M/mm3 (4.10-5.30); RED CELL DISTRIBUTION WIDTH 16.7 % (11.5-14.5); WHITE BLOOD COUNT 11.3 K/mm3 (4.8-10.8)
[2020-04-25 14:52] LABS: ALBUMIN 3.9 g/dL (3.5-5.0); POTASSIUM 3.8 mmol/L (3.5-5.1)
[2020-04-25 14:53] LABS: CALCIUM 8.9 mg/dL (8.3-10.5)
[2020-04-25 14:54] LABS: TOTAL PROTEIN 6.8 g/dL (6.4-8.3)
[2020-04-25 14:56] LABS: TOTAL BILIRUBIN 0.4 mg/dL (0.2-1.2)
== END ==
LOC: LAB 13:56
PROVIDERS: Family Medicine
DX: G44.51 Hemicrania continua (principal); Z79.899 Other long term (current) drug therapy

== ENCOUNTER → 2020-05-10 | Outpatient (CLI) | payer OTHER ==
[2020-05-10 12:13] VITALS: BP 101/68
[2020-05-10 13:02] LABS: HEMATOCRIT 40.1 % (37.0-47.0); HEMOGLOBIN 12.5 g/dL (12.5-16.0); MEAN PLATELET VOLUME 11.8 fl (7.4-10.4); RED BLOOD COUNT 5.11 M/mm3 (4.10-5.30); RED CELL DISTRIBUTION WIDTH 16.9 % (11.5-14.5); WHITE BLOOD COUNT 12.5 K/mm3 (4.8-10.8)
[2020-05-10 13:04] LABS: ALBUMIN 3.9 g/dL (3.5-5.0); POTASSIUM 4.3 mmol/L (3.5-5.1)
[2020-05-10 13:06] LABS: TOTAL PROTEIN 7.1 g/dL (6.4-8.3)
[2020-05-10 13:08] LABS: TOTAL BILIRUBIN 0.3 mg/dL (0.2-1.2)
== END ==
LOC: LAB 12:41
PROVIDERS: Family Medicine
DX: G44.51 Hemicrania continua (principal)

== ENCOUNTER → 2020-06-07 | Outpatient (CLI) | payer OTHER ==
[2020-05-17 13:10] VITALS: BP 109/75
== END ==
LOC: LAB 10:38
DX: G44.51 Hemicrania continua (principal)

== ENCOUNTER → 2020-06-21 | Outpatient (CLI) | payer OTHER ==
[2020-06-14 15:34] VITALS: BP 111/58
[2020-06-21 14:22] LABS: HEMATOCRIT 39.8 % (37.0-47.0); HEMOGLOBIN 12.7 g/dL (12.5-16.0); RED BLOOD COUNT 5.09 M/mm3 (4.10-5.30); RED CELL DISTRIBUTION WIDTH 16.1 % (11.5-14.5); WHITE BLOOD COUNT 12.2 K/mm3 (4.8-10.8)
[2020-06-21 14:23] LABS: MEAN PLATELET VOLUME 12.1 fl (7.4-10.4)
[2020-06-21 14:32] LABS: ALBUMIN 4.1 g/dL (3.5-5.0)
[2020-06-21 14:33] LABS: POTASSIUM 4.2 mmol/L (3.5-5.1)
[2020-06-21 14:34] LABS: CALCIUM 9.3 mg/dL (8.3-10.5)
[2020-06-21 14:35] LABS: TOTAL PROTEIN 7.5 g/dL (6.4-8.3)
[2020-06-21 14:37] LABS: TOTAL BILIRUBIN 0.7 mg/dL (0.2-1.2)
== END ==
LOC: LAB 12:59
PROVIDERS: Family Medicine
DX: G44.51 Hemicrania continua (principal)

== ENCOUNTER → 2020-07-04 | Outpatient (CLI) | payer OTHER ==
[2020-06-28 15:37] VITALS: BP 116/56
[2020-07-04 13:49] LABS: EOS # 0.2 (0.04-0.40); HEMATOCRIT 38.9 % (37.0-47.0); HEMOGLOBIN 12.3 g/dL (12.5-16.0); LYMPH# 3.4 (1.50-4.00); MEAN CELL VOLUME 79 fl (78-100); MEAN CORPUSCULAR HEMOGLOBIN 25 pg (27-31); MEAN CORPUSCULAR HGB CONC 32 g/dL (33-37); MEAN PLATELET VOLUME 11.2 fl (7.4-10.4); MONO # 0.5 (0.20-0.80); PLATELET COUNT 250 K/mm3 (130-400); RED BLOOD COUNT 4.92 M/mm3 (4.10-5.30); RED CELL DISTRIBUTION WIDTH 16.1 % (11.5-14.5); WHITE BLOOD COUNT 11.2 K/mm3 (4.8-10.8)
[2020-07-04 13:50] LABS: ALBUMIN 3.9 g/dL (3.5-5.0)
[2020-07-04 13:51] LABS: CALCIUM 8.9 mg/dL (8.3-10.5)
[2020-07-04 13:52] LABS: TOTAL PROTEIN 7.3 g/dL (6.4-8.3)
[2020-07-04 13:54] LABS: TOTAL BILIRUBIN 0.5 mg/dL (0.2-1.2)
== END ==
LOC: LAB 13:10
PROVIDERS: Family Medicine
DX: G44.51 Hemicrania continua (principal)

== ENCOUNTER 2020-07-08 16:33 | Emergency (ER) | payer OTHER ==
[2020-07-08 17:36] LABS: HEMATOCRIT 38.3 % (37.0-47.0); MEAN CELL VOLUME 79 fl (78-100); MEAN CORPUSCULAR HEMOGLOBIN 25 pg (27-31); MEAN CORPUSCULAR HGB CONC 31 g/dL (33-37); PLATELET COUNT 307 K/mm3 (130-400); RED BLOOD COUNT 4.88 M/mm3 (4.10-5.30); RED CELL DISTRIBUTION WIDTH 15.7 % (11.5-14.5)
[2020-07-08 17:39] LABS: CALCIUM 9.2 mg/dL (8.3-10.5)
[2020-07-08 17:49] LABS: LYMPHOCYTE 7 % (20-51); MICROCYTOSIS 1+; MONOCYTE 6 % (3-10); NEUTROPHILS 87 % (42-75)
[2020-07-08 19:00] LABS: URINE APPEARANCE HAZY; URINE BILIRUBIN NEGATIVE (NEGATIVE); URINE BLOOD 50 ery/uL (NEGATIVE); URINE COLOR YELLOW; URINE GLUCOSE NEGATIVE (NEGATIVE); URINE KETONE NEGATIVE (NEGATIVE); URINE NITRATE NEGATIVE (NEGATIVE); URINE PROTEIN(semi-quant) NEGATIVE (NEGATIVE)
[2020-07-08 19:01] LABS: URINE LEUKOCYTE ESTERASE NEGATIVE (NEGATIVE); URINE WBC 0-1 /hpf (0-3)
[2020-07-08 19:50] VITALS: BP 119/76
== END 2020-07-08 19:50 | disposition home or self-care (01) ==
LOC: ED 16:33
PROVIDERS: Physician Assistant
DX: G43.909 Migraine, unspecified, not intractable, without status migrainosus (principal); G44.51 Hemicrania continua
CPT/HCPCS: J1170; J1630; J1885; J2405; J7030

== ENCOUNTER → 2020-07-11 | Outpatient (RCR) | payer OTHER ==
[2020-04-12 10:35] VITALS: BP 123/85
[2020-04-12 13:00] VITALS: BP 130/96
[2020-04-25 14:24] VITALS: BP 108/74
[2020-04-25 15:38] VITALS: BP 99/62
[2020-05-03 10:45] VITALS: BP 101/69
[2020-05-10 12:13] VITALS: BP 101/68
[2020-05-10 14:26] VITALS: BP 98/64
[2020-05-17 11:08] VITALS: BP 116/76
[2020-05-17 13:10] VITALS: BP 109/75
[2020-06-07 10:55] VITALS: BP 115/76
[2020-06-07 13:02] VITALS: BP 112/79
[2020-06-14 13:24] VITALS: BP 101/67
[2020-06-14 15:34] VITALS: BP 111/58
[2020-06-21 13:22] VITALS: BP 117/74
[2020-06-21 15:30] VITALS: BP 113/73
[2020-06-28 14:19] VITALS: BP 138/92
[2020-06-28 15:37] VITALS: BP 116/56
[2020-07-04 13:38] VITALS: BP 120/84
[~2020-07-11] VITALS: Ht 167.6 cm; Wt 90.9 kg
[2020-07-11 13:25] VITALS: BP 118/79
[2020-07-11 13:27] VITALS: BP 118/79
[2020-07-11 15:50] VITALS: BP 107/72
== END | disposition still patient (30) ==
LOC: AMSURD
DX: G44.51 Hemicrania continua (principal); Z79.899 Other long term (current) drug therapy
CPT/HCPCS: J1200; J1644; J1885; J2550; J3475; J7040

== ENCOUNTER → 2020-07-18 | Outpatient (CLI) | payer OTHER ==
[2020-07-11 15:50] VITALS: BP 107/72
[2020-07-18 10:52] LABS: HEMOGLOBIN 11.8 g/dL (12.5-16.0); MEAN PLATELET VOLUME 11.3 fl (7.4-10.4); RED BLOOD COUNT 4.78 M/mm3 (4.10-5.30); RED CELL DISTRIBUTION WIDTH 15.7 % (11.5-14.5); WHITE BLOOD COUNT 13.8 K/mm3 (4.8-10.8)
[2020-07-18 10:57] LABS: ALBUMIN 3.8 g/dL (3.5-5.0); POTASSIUM 4.2 mmol/L (3.5-5.1)
[2020-07-18 11:00] LABS: TOTAL PROTEIN 6.7 g/dL (6.4-8.3)
[2020-07-18 11:02] LABS: TOTAL BILIRUBIN 0.7 mg/dL (0.2-1.2)
== END ==
LOC: LAB 10:21
PROVIDERS: Family Medicine
DX: G44.51 Hemicrania continua (principal)

== ENCOUNTER → 2020-07-31 | Outpatient (CLI) | payer OTHER ==
[2020-07-27 15:40] VITALS: BP 124/71
[2020-07-31 13:34] LABS: BASO # 0.1 (0.02-0.10); EOS # 0.3 (0.04-0.40); EOS % 2.5 % (1.0-5.0); HEMATOCRIT 38.3 % (37.0-47.0); HEMOGLOBIN 11.9 g/dL (12.5-16.0); LYMPH# 3.1 (1.50-4.00); MEAN CELL VOLUME 79 fl (78-100); MEAN CORPUSCULAR HEMOGLOBIN 25 pg (27-31); MEAN CORPUSCULAR HGB CONC 31 g/dL (33-37); MEAN PLATELET VOLUME 11.2 fl (7.4-10.4); MONO # 0.5 (0.20-0.80); PLATELET COUNT 267 K/mm3 (130-400); RED BLOOD COUNT 4.84 M/mm3 (4.10-5.30); RED CELL DISTRIBUTION WIDTH 15.8 % (11.5-14.5); WHITE BLOOD COUNT 9.9 K/mm3 (4.8-10.8)
[2020-07-31 13:53] LABS: ALBUMIN 3.7 g/dL (3.5-5.0); POTASSIUM 4.1 mmol/L (3.5-5.1)
[2020-07-31 13:55] LABS: CALCIUM 8.8 mg/dL (8.3-10.5)
[2020-07-31 13:56] LABS: TOTAL PROTEIN 6.6 g/dL (6.4-8.3)
[2020-07-31 13:58] LABS: TOTAL BILIRUBIN 0.3 mg/dL (0.2-1.2)
== END ==
LOC: LAB 12:59
PROVIDERS: Family Medicine
DX: G44.51 Hemicrania continua (principal)

== ENCOUNTER 2020-08-28 12:44 | Outpatient (RCR) | payer OTHER ==
[2020-07-18 10:59] VITALS: BP 132/81
[2020-07-18 12:19] VITALS: BP 129/75
[2020-07-24 13:00] VITALS: BP 107/72
[2020-07-27 13:30] VITALS: BP 136/65
[2020-07-27 15:40] VITALS: BP 124/71
[2020-07-31 13:07] VITALS: BP 108/68
[2020-08-07 13:20] VITALS: BP 130/68
[2020-08-07 15:50] VITALS: BP 123/78
[2020-08-10 14:39] VITALS: BP 133/61
[2020-08-10 16:06] VITALS: BP 101/54
[2020-08-14 14:00] VITALS: BP 110/77
[2020-08-17 13:19] VITALS: BP 102/72
[2020-08-17 15:07] VITALS: BP 106/76
[2020-08-21 13:20] VITALS: BP 133/88
[2020-08-21 15:21] VITALS: BP 135/82
[2020-08-24 13:20] VITALS: BP 117/65
[2020-08-24 15:25] VITALS: BP 114/74
[~2020-08-28] VITALS: Ht 167.6 cm; Wt 90.9 kg
[2020-08-28 13:15] VITALS: BP 120/90
== END 2020-08-28 13:00 | disposition still patient (30) ==
LOC: AMSURD 12:44
DX: G44.51 Hemicrania continua (principal)
CPT/HCPCS: J1200; J1644; J1885; J2550; J3475; J7040

== ENCOUNTER → 2020-08-28 | Outpatient (CLI) | payer OTHER ==
[2020-08-24 15:25] VITALS: BP 114/74
[2020-08-28 13:12] LABS: HEMATOCRIT 38.3 % (37.0-47.0); MEAN PLATELET VOLUME 11.3 fl (7.4-10.4); RED BLOOD COUNT 4.95 M/mm3 (4.10-5.30); RED CELL DISTRIBUTION WIDTH 15.6 % (11.5-14.5); WHITE BLOOD COUNT 8.6 K/mm3 (4.8-10.8)
[2020-08-28 13:20] LABS: ALBUMIN 3.8 g/dL (3.5-5.0)
[2020-08-28 13:22] LABS: CALCIUM 8.8 mg/dL (8.3-10.5)
[2020-08-28 13:23] LABS: TOTAL PROTEIN 6.6 g/dL (6.4-8.3)
[2020-08-28 13:25] LABS: TOTAL BILIRUBIN 0.6 mg/dL (0.2-1.2)
== END ==
LOC: LAB 12:47
PROVIDERS: Family Medicine
DX: G44.51 Hemicrania continua (principal)

== ENCOUNTER 2020-09-10 18:43 | Emergency (ER) | payer OTHER ==
[~2020-09-10] VITALS: Ht 167.6 cm; Wt 90.9 kg
[2020-09-11 00:06] VITALS: BP 124/92
== END 2020-09-11 00:06 | disposition home or self-care (01) ==
LOC: ED 18:43
DX: G43.909 Migraine, unspecified, not intractable, without status migrainosus (principal); I10 Essential (primary) hypertension; F41.0 Panic disorder [episodic paroxysmal anxiety]; Z90.49 Acquired absence of other specified parts of digestive tract; Z90.710 Acquired absence of both cervix and uterus; Z90.89 Acquired absence of other organs
CPT/HCPCS: J1170; J1200; J1630; J1885; J2405; J2550; J7030

== ENCOUNTER → 2020-09-18 | Outpatient (CLI) | payer OTHER ==
[2020-09-11 13:59] VITALS: BP 154/87
[2020-09-18 13:35] LABS: HEMATOCRIT 39.4 % (37.0-47.0); HEMOGLOBIN 12.4 g/dL (12.5-16.0); MEAN PLATELET VOLUME 11.1 fl (7.4-10.4); RED BLOOD COUNT 5.14 M/mm3 (4.10-5.30)
[2020-09-18 13:39] LABS: POTASSIUM 3.9 mmol/L (3.5-5.1)
[2020-09-18 13:41] LABS: CALCIUM 9.3 mg/dL (8.3-10.5)
[2020-09-18 13:44] LABS: TOTAL BILIRUBIN 0.8 mg/dL (0.2-1.2)
== END ==
LOC: LAB 13:02
PROVIDERS: Family Medicine
DX: G44.51 Hemicrania continua (principal)

== ENCOUNTER → 2020-10-05 | Outpatient (CLI) | payer OTHER ==
[2020-10-02 13:15] VITALS: BP 112/79
[2020-10-05 12:44] LABS: HEMATOCRIT 38.9 % (37.0-47.0); HEMOGLOBIN 11.9 g/dL (12.5-16.0); RED BLOOD COUNT 4.98 M/mm3 (4.10-5.30); RED CELL DISTRIBUTION WIDTH 15.4 % (11.5-14.5); WHITE BLOOD COUNT 14.1 K/mm3 (4.8-10.8)
[2020-10-05 12:45] LABS: ALBUMIN 3.8 g/dL (3.5-5.0); MEAN PLATELET VOLUME 12.2 fl (7.4-10.4)
[2020-10-05 12:46] LABS: POTASSIUM 4.1 mmol/L (3.5-5.1)
[2020-10-05 12:47] LABS: CALCIUM 8.7 mg/dL (8.3-10.5)
[2020-10-05 12:48] LABS: TOTAL PROTEIN 6.8 g/dL (6.4-8.3)
[2020-10-05 12:50] LABS: TOTAL BILIRUBIN 0.6 mg/dL (0.2-1.2)
== END ==
LOC: LAB 11:03
PROVIDERS: Family Medicine
DX: G44.51 Hemicrania continua (principal)

== ENCOUNTER → 2020-10-19 | Outpatient (CLI) | payer OTHER ==
[~2020-10-19] MED LIST changes: +NURTEC ODT75 MG PO
[2020-10-19 13:20] VITALS: BP 143/82
[2020-10-19 16:18] LABS: ALBUMIN 3.8 g/dL (3.5-5.0)
[2020-10-19 16:20] LABS: CALCIUM 8.7 mg/dL (8.3-10.5)
[2020-10-19 16:21] LABS: TOTAL PROTEIN 6.9 g/dL (6.4-8.3)
[2020-10-19 16:23] LABS: TOTAL BILIRUBIN 0.3 mg/dL (0.2-1.2)
== END ==
LOC: LAB 14:57
PROVIDERS: Family Medicine
DX: G44.51 Hemicrania continua (principal)

== ENCOUNTER 2020-11-04 13:01 | Emergency (ER) | payer OTHER ==
[~2020-11-04] VITALS: Ht 167.6 cm; Wt 93.2 kg
[2020-11-04 14:06] LABS: BASO # 0.1 (0.02-0.10); EOS # 0.1 (0.04-0.40); HEMOGLOBIN 12.1 g/dL (12.5-16.0); LYMPH# 3.3 (1.50-4.00); MEAN CELL VOLUME 76 fl (78-100); MEAN CORPUSCULAR HGB CONC 30 g/dL (33-37); MEAN PLATELET VOLUME 10.9 fl (7.4-10.4); MONO # 0.7 (0.20-0.80); PLATELET COUNT 277 K/mm3 (130-400); RED BLOOD COUNT 5.25 M/mm3 (4.10-5.30); RED CELL DISTRIBUTION WIDTH 15.8 % (11.5-14.5); WHITE BLOOD COUNT 13.9 K/mm3 (4.8-10.8)
[2020-11-04 14:10] LABS: MEAN CORPUSCULAR HEMOGLOBIN 23 pg (27-31); NEU # 9.7 (1.40-6.50)
[2020-11-04 14:19] LABS: CALCIUM 9.1 mg/dL (8.3-10.5)
[2020-11-04 16:59] VITALS: BP 126/82
== END 2020-11-04 17:00 | disposition home or self-care (01) ==
LOC: ED 13:01
PROVIDERS: Family Medicine
DX: B34.9 Viral infection, unspecified (principal); F41.0 Panic disorder [episodic paroxysmal anxiety]; Z20.828 Contact with and (suspected) exposure to other viral communicable diseases; Z90.49 Acquired absence of other specified parts of digestive tract; Z90.710 Acquired absence of both cervix and uterus; Z90.89 Acquired absence of other organs; Z88.0 Allergy status to penicillin; Z88.2 Allergy status to sulfonamides; Z88.8 Allergy status to other drugs, medicaments and biological substances
CPT/HCPCS: J0595; J1885; J2550; J3490; J7120

== ENCOUNTER → 2020-11-20 | Outpatient (CLI) | payer OTHER ==
[2020-11-16 15:40] VITALS: BP 117/78
[2020-11-20 13:24] LABS: HEMATOCRIT 39.8 % (37.0-47.0); RED BLOOD COUNT 5.21 M/mm3 (4.10-5.30); RED CELL DISTRIBUTION WIDTH 15.8 % (11.5-14.5); WHITE BLOOD COUNT 10.5 K/mm3 (4.8-10.8)
[2020-11-20 13:35] LABS: ALBUMIN 3.7 g/dL (3.5-5.0); POTASSIUM 4.1 mmol/L (3.5-5.1)
[2020-11-20 13:36] LABS: CALCIUM 8.9 mg/dL (8.3-10.5)
[2020-11-20 13:37] LABS: TOTAL PROTEIN 6.8 g/dL (6.4-8.3)
[2020-11-20 13:39] LABS: TOTAL BILIRUBIN 0.5 mg/dL (0.2-1.2)
== END ==
LOC: LAB 12:47
PROVIDERS: Family Medicine
DX: Z01.89 Encounter for other specified special examinations (principal)

== ENCOUNTER → 2020-11-29 | Outpatient (RCR) | payer OTHER ==
[2020-08-31 13:54] VITALS: BP 137/60
[2020-09-04 13:26] VITALS: BP 135/82
[2020-09-04 15:38] VITALS: BP 122/82
[2020-09-07 14:05] VITALS: BP 131/87
--- NOTE | 2020-09-07 14:30 | NUR ---
Order received from Dr. Singer's office for toradol today. Pt would like the toradol of her GAUTAM.
[2020-09-07 16:09] VITALS: BP 112/76
[2020-09-11 13:59] VITALS: BP 154/87
--- NOTE | 2020-09-18 13:25 | NUR ---
Accessed portacath with #[id number] 1 inch go needle. Aspirated blood return. flushed with NS. Withdrew 10ml of blood for waste, then hemanth out 10ml of blood for labs. Flushed with 10ml NS prior to starting infusion.
[2020-09-18 14:00] VITALS: BP 124/79
[2020-09-18 15:46] VITALS: BP 117/80
[2020-09-21 13:00] VITALS: BP 134/85
[2020-09-21 14:37] VITALS: BP 134/85
[2020-09-21 15:15] VITALS: BP 118/85
[2020-09-25 13:24] VITALS: BP 136/87
[2020-09-28 14:09] VITALS: BP 113/75
[2020-09-28 16:05] VITALS: BP 131/76
[2020-09-28 18:05] VITALS: BP 131/76
[2020-10-02 13:15] VITALS: BP 112/79
[2020-10-05 10:30] VITALS: BP 135/90
--- NOTE | 2020-10-05 11:00 | NUR ---
Labs drawn today with port access.
[2020-10-05 13:09] VITALS: BP 113/64
[2020-10-09 13:15] VITALS: BP 127/76
[2020-10-09 15:25] VITALS: BP 130/81
[2020-10-12 13:36] VITALS: BP 163/84
[2020-10-12 14:48] VITALS: BP 148/72
[2020-10-16 12:05] VITALS: BP 130/93
[2020-10-19 13:20] VITALS: BP 143/82
[2020-10-19 15:30] VITALS: BP 136/78
[2020-10-23 11:51] VITALS: BP 132/92
[2020-10-23 13:53] VITALS: BP 135/64
[2020-10-26 13:34] VITALS: BP 133/64
[2020-11-07 16:12] VITALS: BP 138/72
--- NOTE | 2020-11-07 16:12 | NUR ---
PT VERBALIZES SHE IS "NO LONGER TO TAKE IV PHENERGAN" DUE TO "TWITCHING IN HER FACE", ALSO REQUESTING PRN TORADOL, NO ORDERS FAXED TO [facility], CALL TO NURSE AT THIS TIME TO REQUEST UPDATED MEDICATION ORDERS PER PT REQUEST
[2020-11-09 14:27] VITALS: BP 133/84
[2020-11-09 15:04] VITALS: BP 137/77
[2020-11-13 13:58] VITALS: BP 142/92
[2020-11-16 13:30] VITALS: BP 120/85
[2020-11-16 15:40] VITALS: BP 117/78
[2020-11-20 13:10] VITALS: BP 133/65
[2020-11-20 15:15] VITALS: BP 125/62
[2020-11-22 09:40] VITALS: BP 134/82
[2020-11-22 11:27] VITALS: BP 126/64
[2020-11-27 14:14] VITALS: BP 137/93
[~2020-11-29] VITALS: Ht 167.6 cm; Wt 90.9 kg
[~2020-11-29] MED LIST changes: +PRILOSEC OTC20 MG PO
[2020-11-29 13:01] VITALS: BP 144/84
[2020-11-29 15:03] VITALS: BP 124/80
== END | disposition home or self-care (01) ==
LOC: AMSURD
DX: G44.51 Hemicrania continua (principal); Z79.899 Other long term (current) drug therapy
CPT/HCPCS: J1200; J1644; J1885; J2550; J3475; J7040

== ENCOUNTER → 2020-12-08 | Outpatient (CLI) | payer OTHER ==
[2020-11-29 15:03] VITALS: BP 124/80
[2020-12-08 14:18] LABS: HEMATOCRIT 37.7 % (37.0-47.0); HEMOGLOBIN 11.5 g/dL (12.5-16.0); MEAN PLATELET VOLUME 11.4 fl (7.4-10.4); RED BLOOD COUNT 4.97 M/mm3 (4.10-5.30); RED CELL DISTRIBUTION WIDTH 16.5 % (11.5-14.5)
[2020-12-08 14:25] LABS: ALBUMIN 3.8 g/dL (3.5-5.0)
[2020-12-08 14:26] LABS: POTASSIUM 4.2 mmol/L (3.5-5.1)
[2020-12-08 14:27] LABS: CALCIUM 8.9 mg/dL (8.3-10.5)
[2020-12-08 14:28] LABS: TOTAL PROTEIN 6.8 g/dL (6.4-8.3)
[2020-12-08 14:30] LABS: TOTAL BILIRUBIN 0.7 mg/dL (0.2-1.2)
== END ==
LOC: LAB 13:37
PROVIDERS: Family Medicine
DX: G44.51 Hemicrania continua (principal)

== ENCOUNTER → 2020-12-25 | Outpatient (CLI) | payer OTHER ==
[2020-12-21 13:19] VITALS: BP 115/77
[2020-12-25 15:44] LABS: HEMATOCRIT 37.9 % (37.0-47.0); HEMOGLOBIN 11.6 g/dL (12.5-16.0); MEAN PLATELET VOLUME 11.9 fl (7.4-10.4); RED BLOOD COUNT 5.04 M/mm3 (4.10-5.30); RED CELL DISTRIBUTION WIDTH 16.1 % (11.5-14.5); WHITE BLOOD COUNT 12.6 K/mm3 (4.8-10.8)
[2020-12-25 15:55] LABS: ALBUMIN 3.7 g/dL (3.5-5.0); POTASSIUM 3.8 mmol/L (3.5-5.1)
[2020-12-25 15:56] LABS: CALCIUM 9.2 mg/dL (8.3-10.5)
[2020-12-25 15:57] LABS: TOTAL PROTEIN 6.7 g/dL (6.4-8.3)
[2020-12-25 15:59] LABS: TOTAL BILIRUBIN 0.7 mg/dL (0.2-1.2)
== END ==
LOC: LAB 14:56
PROVIDERS: Family Medicine
DX: G44.51 Hemicrania continua (principal)

== ENCOUNTER → 2021-01-11 | Outpatient (CLI) | payer OTHER ==
[2021-01-11 13:29] VITALS: BP 115/74
[2021-01-11 13:58] LABS: BASO # 0.1 (0.02-0.10); EOS # 0.3 (0.04-0.40); EOS % 2.1 % (1.0-5.0); HEMATOCRIT 37.7 % (37.0-47.0); HEMOGLOBIN 11.3 g/dL (12.5-16.0); LYMPH# 2.9 (1.50-4.00); MEAN CELL VOLUME 76 fl (78-100); MEAN CORPUSCULAR HEMOGLOBIN 23 pg (27-31); MEAN CORPUSCULAR HGB CONC 30 g/dL (33-37); MEAN PLATELET VOLUME 11.6 fl (7.4-10.4); MONO # 0.7 (0.20-0.80); NEU # 8.6 (1.40-6.50); PLATELET COUNT 270 K/mm3 (130-400); RED BLOOD COUNT 4.94 M/mm3 (4.10-5.30); RED CELL DISTRIBUTION WIDTH 16.7 % (11.5-14.5); WHITE BLOOD COUNT 12.5 K/mm3 (4.8-10.8)
[2021-01-11 14:08] LABS: ALBUMIN 3.6 g/dL (3.5-5.0)
[2021-01-11 14:09] LABS: POTASSIUM 3.8 mmol/L (3.5-5.1)
[2021-01-11 14:11] LABS: TOTAL PROTEIN 6.5 g/dL (6.4-8.3)
[2021-01-11 14:13] LABS: TOTAL BILIRUBIN 0.4 mg/dL (0.2-1.2)
== END ==
LOC: LAB 13:49
PROVIDERS: Family Medicine
DX: G44.51 Hemicrania continua (principal)

== ENCOUNTER → 2021-01-25 | Outpatient (CLI) | payer OTHER ==
[2021-01-22 12:00] VITALS: BP 102/65
[~2021-01-25] MED LIST changes: +DEXAMETHASONE2 M1 PO; +FERROUS SULFAT325 MG; -NATURE'S BLEND400 I1 PO; +TIZANIDINE2 MG PO; +VITAMIN D350 MC1 PO; +ZOFRAN ODT4 MG PO
[2021-01-25 17:18] LABS: HEMATOCRIT 36.3 % (37.0-47.0); HEMOGLOBIN 10.8 g/dL (12.5-16.0); MEAN PLATELET VOLUME 11.1 fl (7.4-10.4); RED BLOOD COUNT 4.74 M/mm3 (4.10-5.30); RED CELL DISTRIBUTION WIDTH 17.3 % (11.5-14.5); WHITE BLOOD COUNT 15.2 K/mm3 (4.8-10.8)
[2021-01-25 17:31] LABS: ALBUMIN 3.7 g/dL (3.5-5.0)
[2021-01-25 17:32] LABS: CALCIUM 9.2 mg/dL (8.3-10.5)
[2021-01-25 17:33] LABS: TOTAL PROTEIN 6.7 g/dL (6.4-8.3)
[2021-01-25 17:55] LABS: TOTAL BILIRUBIN 0.3 mg/dL (0.2-1.2)
== END ==
LOC: LAB 16:43
PROVIDERS: Family Medicine
DX: G44.51 Hemicrania continua (principal)

== ENCOUNTER → 2021-02-08 | Outpatient (CLI) | payer OTHER ==
[2021-02-05 18:21] VITALS: BP 116/76
[2021-02-08 14:26] LABS: HEMATOCRIT 39.9 % (37.0-47.0); RED BLOOD COUNT 5.25 M/mm3 (4.10-5.30); WHITE BLOOD COUNT 15.1 K/mm3 (4.8-10.8)
[2021-02-08 14:27] LABS: MEAN PLATELET VOLUME 12.3 fl (7.4-10.4)
[2021-02-08 14:33] LABS: ALBUMIN 3.8 g/dL (3.5-5.0); POTASSIUM 3.7 mmol/L (3.5-5.1)
[2021-02-08 14:34] LABS: CALCIUM 9.2 mg/dL (8.3-10.5)
[2021-02-08 14:35] LABS: TOTAL PROTEIN 7.1 g/dL (6.4-8.3)
[2021-02-08 14:37] LABS: TOTAL BILIRUBIN 0.7 mg/dL (0.2-1.2)
== END ==
LOC: LAB 12:52
PROVIDERS: Family Medicine
DX: G44.51 Hemicrania continua (principal)

== ENCOUNTER 2021-02-17 10:11 | Emergency (ER) | payer OTHER ==
[~2021-02-17 10:11] MED LIST changes: -DEXAMETHASONE2 M1 PO; -FERROUS SULFAT325 MG; -TIZANIDINE2 MG PO; -ZOFRAN ODT4 MG PO
[2021-02-17 13:46] VITALS: BP 128/78
[2021-05-10] MEDS ORDERED: TIZANIDINE2 MG PO (11:08)
== END 2021-02-17 13:33 | disposition home or self-care (01) ==
LOC: ED 10:11
DX: R51.9 Headache, unspecified (principal); K21.9 Gastro-esophageal reflux disease without esophagitis
CPT/HCPCS: J0595; J1644; J1885; J7120

== ENCOUNTER → 2021-02-22 | Outpatient (CLI) | payer OTHER ==
[2021-02-19 11:41] VITALS: BP 112/82
[~2021-02-22] MED LIST changes: +DEXAMETHASONE2 M1 PO; +FERROUS SULFAT325 MG; +TIZANIDINE2 MG PO; +ZOFRAN ODT4 MG PO
[2021-02-22 13:18] LABS: HEMATOCRIT 35.4 % (37.0-47.0); HEMOGLOBIN 10.7 g/dL (12.5-16.0); MEAN PLATELET VOLUME 11.1 fl (7.4-10.4); RED BLOOD COUNT 4.64 M/mm3 (4.10-5.30); RED CELL DISTRIBUTION WIDTH 17.2 % (11.5-14.5); WHITE BLOOD COUNT 12.3 K/mm3 (4.8-10.8)
[2021-02-22 13:28] LABS: ALBUMIN 3.5 g/dL (3.5-5.0)
[2021-02-22 13:29] LABS: POTASSIUM 4.1 mmol/L (3.5-5.1)
[2021-02-22 13:31] LABS: TOTAL PROTEIN 6.6 g/dL (6.4-8.3)
[2021-02-22 13:33] LABS: TOTAL BILIRUBIN 0.5 mg/dL (0.2-1.2)
== END ==
LOC: LAB 12:43
PROVIDERS: Family Medicine
DX: G44.51 Hemicrania continua (principal)

== ENCOUNTER 2021-03-04 12:31 | Outpatient (RCR) | payer OTHER ==
[2020-12-08 13:45] VITALS: BP 127/71
--- NOTE | 2020-12-08 13:50 | NUR ---
Unable to get blood return with port access. Attempted again with another 3/4 inch go needle with blood tinge return. Pt asked to turn her head and cough several times and blood return then noted. Labs drawn off port and taken to lab. Port flushes well after blood draw.
[2020-12-11 12:41] VITALS: BP 120/74
[2020-12-14 12:40] VITALS: BP 135/76
[2020-12-18 13:30] VITALS: BP 111/65
[2020-12-21 13:19] VITALS: BP 115/77
[2020-12-25 15:21] VITALS: BP 116/81
[2020-12-29 12:00] VITALS: BP 116/78
[2021-01-01 18:08] VITALS: BP 109/70
[2021-01-04 16:20] VITALS: BP 122/69
[2021-01-08 16:21] VITALS: BP 136/81
[2021-01-11 13:29] VITALS: BP 115/74
--- NOTE | 2021-01-11 14:08 | NUR ---
Pt here for IV Magnesium infusion and IV benadryl for headaches. Denies needing any Toradol or IVF today. Accessed rt portacath with #20 gu 1 inch Egan needle. Unable to obtain blood return at first. Flushed easily with NS. After several brisk 10ml NS flushes, was able to aspirate small amount of blood, but not enough for lab draw. Naseem blood from right arm instead of using port. Pt tolerated well. Resting in bed with call light in reach. [place] given. Offerred something to drink but she declined at this time. Benadryl given as ordered and Mag infusion started.
[2021-01-15 13:02] VITALS: BP 122/73
[2021-01-18 11:47] VITALS: BP 141/86
[2021-01-18 13:32] VITALS: BP 118/72
[2021-01-22 12:00] VITALS: BP 102/65
--- NOTE | 2021-01-25 16:07 | NUR ---
Order noted for weekly infusions. Pt was here on 01/21 and here again for additional infusion. Call placed to Dr. Singer's office by Yasmin Andersen RN. Dr. Singer out of office and unable to clarify order at this time. Message left requesting return call when able.
[2021-01-25 16:40] VITALS: BP 119/71
[2021-01-25 18:54] VITALS: BP 124/80
[2021-01-29 13:52] VITALS: BP 118/76
[2021-02-01 16:45] VITALS: BP 118/74
[2021-02-01 18:27] VITALS: BP 124/81
[2021-02-05 16:49] VITALS: BP 128/84
[2021-02-05 18:21] VITALS: BP 116/76
[2021-02-08 14:48] VITALS: BP 110/65
[2021-02-12 13:30] VITALS: BP 118/72
[2021-02-12 15:30] VITALS: BP 102/66
[2021-02-15 13:15] VITALS: BP 127/63
[2021-02-15 14:49] VITALS: BP 113/62
[2021-02-19 11:41] VITALS: BP 112/82
[2021-02-22 13:08] VITALS: BP 116/71
[2021-02-22 14:46] VITALS: BP 110/66
[2021-02-26 13:56] VITALS: BP 130/87
[2021-02-26 15:10] VITALS: BP 124/76
[2021-03-01 14:13] VITALS: BP 133/67
[2021-03-01 15:38] VITALS: BP 116/78
[~2021-03-04 12:31] MED LIST changes: -DEXAMETHASONE2 M1 PO; -FERROUS SULFAT325 MG; -TIZANIDINE2 MG PO; -ZOFRAN ODT4 MG PO
[2021-03-04 12:53] VITALS: BP 121/83
[2021-03-04 14:51] VITALS: BP 126/82
[2021-05-10] MEDS ORDERED: TIZANIDINE2 MG PO (11:08)
== END 2021-03-08 | disposition home or self-care (01) ==
LOC: AMSURD
DX: G44.51 Hemicrania continua (principal)
CPT/HCPCS: J1200; J1644; J1885; J2405; J3475; J7040

== ENCOUNTER 2021-03-10 18:44 | Emergency (ER) | payer OTHER ==
[2021-03-10 22:02] VITALS: BP 96/63
[2021-05-10] MEDS ORDERED: TIZANIDINE2 MG PO (11:08)
== END 2021-03-10 22:04 | disposition home or self-care (01) ==
LOC: ED 18:44
DX: G43.119 Migraine with aura, intractable, without status migrainosus (principal); K21.9 Gastro-esophageal reflux disease without esophagitis
CPT/HCPCS: J0595; J1200; J1885; J7030

== ENCOUNTER → 2021-03-15 | Outpatient (CLI) | payer OTHER ==
[~2021-03-15] MED LIST changes: +DEXAMETHASONE2 M1 PO; +FERROUS SULFAT325 MG; +TIZANIDINE2 MG PO; +ZOFRAN ODT4 MG PO
[2021-03-15 16:38] VITALS: BP 124/75
[2021-03-15 17:37] LABS: HEMOGLOBIN 9.8 g/dL (12.5-16.0); MEAN PLATELET VOLUME 11.7 fl (7.4-10.4); RED BLOOD COUNT 4.38 M/mm3 (4.10-5.30); RED CELL DISTRIBUTION WIDTH 17.6 % (11.5-14.5); WHITE BLOOD COUNT 13.8 K/mm3 (4.8-10.8)
[2021-03-15 17:43] LABS: ALBUMIN 2.9 g/dL (3.5-5.0); POTASSIUM 3.6 mmol/L (3.5-5.1)
[2021-03-15 17:44] LABS: CALCIUM 7.9 mg/dL (8.3-10.5)
[2021-03-15 17:46] LABS: TOTAL PROTEIN 5.6 g/dL (6.4-8.3)
[2021-03-15 17:47] LABS: TOTAL BILIRUBIN 0.4 mg/dL (0.2-1.2)
== END ==
LOC: LAB 16:54
PROVIDERS: Family Medicine
DX: G44.51 Hemicrania continua (principal)

== ENCOUNTER 2021-03-24 10:07 | Emergency (ER) | payer OTHER ==
[~2021-03-24 10:07] MED LIST changes: -DEXAMETHASONE2 M1 PO; -FERROUS SULFAT325 MG; -TIZANIDINE2 MG PO; -ZOFRAN ODT4 MG PO
[2021-03-24 11:19] LABS: BASO # 0.1 (0.02-0.10); EOS # 0.2 (0.04-0.40); EOS % 1.5 % (1.0-5.0); HEMATOCRIT 38.1 % (37.0-47.0); HEMOGLOBIN 11.4 g/dL (12.5-16.0); LYMPH# 2.3 (1.50-4.00); MEAN CELL VOLUME 77 fl (78-100); MEAN CORPUSCULAR HGB CONC 30 g/dL (33-37); MEAN PLATELET VOLUME 10.5 fl (7.4-10.4); MONO # 0.4 (0.20-0.80); NEU # 8.7 (1.40-6.50); PLATELET COUNT 219 K/mm3 (130-400); RED BLOOD COUNT 4.94 M/mm3 (4.10-5.30); RED CELL DISTRIBUTION WIDTH 17.6 % (11.5-14.5); WHITE BLOOD COUNT 11.7 K/mm3 (4.8-10.8)
[2021-03-24 11:25] LABS: MEAN CORPUSCULAR HEMOGLOBIN 23 pg (27-31)
[2021-03-24 14:25] VITALS: BP 124/84
[2021-03-24] MEDS ORDERED: DEXAMETHASONE2 M1 PO (14:35)
[2021-05-10] MEDS ORDERED: TIZANIDINE2 MG PO (11:08)
== END 2021-03-24 14:25 | disposition home or self-care (01) ==
LOC: ED 10:07
PROVIDERS: Family Medicine
DX: R51.9 Headache, unspecified (principal); H65.02 Acute serous otitis media, left ear; J30.2 Other seasonal allergic rhinitis; K21.9 Gastro-esophageal reflux disease without esophagitis; F41.9 Anxiety disorder, unspecified
CPT/HCPCS: J0595; J1885; J7030

== ENCOUNTER → 2021-04-09 | Outpatient (CLI) | payer OTHER ==
[2021-04-02 13:15] VITALS: BP 140/85
[~2021-04-09] MED LIST changes: +DEXAMETHASONE2 M1 PO; +FERROUS SULFAT325 MG; +TIZANIDINE2 MG PO; +ZOFRAN ODT4 MG PO
[2021-04-09 16:39] LABS: HEMATOCRIT 40.1 % (37.0-47.0); HEMOGLOBIN 12.2 g/dL (12.5-16.0); MEAN PLATELET VOLUME 10.5 fl (7.4-10.4); RED BLOOD COUNT 5.1 M/mm3 (4.10-5.30); RED CELL DISTRIBUTION WIDTH 20.9 % (11.5-14.5)
[2021-04-09 16:56] LABS: ALBUMIN 3.4 g/dL (3.5-5.0)
[2021-04-09 16:57] LABS: CALCIUM 8.5 mg/dL (8.3-10.5)
[2021-04-09 17:00] LABS: TOTAL BILIRUBIN 0.6 mg/dL (0.2-1.2)
== END ==
LOC: LAB 15:40
PROVIDERS: Family Medicine
DX: G44.51 Hemicrania continua (principal)

== ENCOUNTER → 2021-04-23 | Outpatient (CLI) | payer OTHER ==
[2021-04-19 15:42] VITALS: BP 105/67
[2021-04-23 14:27] LABS: HEMATOCRIT 42.1 % (37.0-47.0); MEAN PLATELET VOLUME 10.7 fl (7.4-10.4); RED BLOOD COUNT 5.29 M/mm3 (4.10-5.30); RED CELL DISTRIBUTION WIDTH 19.9 % (11.5-14.5); WHITE BLOOD COUNT 15.4 K/mm3 (4.8-10.8)
[2021-04-23 14:31] LABS: ALBUMIN 3.3 g/dL (3.5-5.0)
[2021-04-23 14:33] LABS: CALCIUM 8.4 mg/dL (8.3-10.5)
[2021-04-23 14:34] LABS: TOTAL PROTEIN 5.7 g/dL (6.4-8.3)
[2021-04-23 14:36] LABS: TOTAL BILIRUBIN 0.5 mg/dL (0.2-1.2)
== END ==
LOC: LAB 13:24
PROVIDERS: Family Medicine
DX: G44.51 Hemicrania continua (principal)

== ENCOUNTER 2021-04-25 18:23 | Emergency (ER) | payer OTHER ==
[~2021-04-25 18:23] MED LIST changes: -FERROUS SULFAT325 MG; -TIZANIDINE2 MG PO; -ZOFRAN ODT4 MG PO
[2021-04-25] MEDS ORDERED: FERROUS SULFAT325 MG (18:38)
[2021-04-25 21:51] VITALS: BP 131/86
[2021-05-10] MEDS ORDERED: TIZANIDINE2 MG PO (11:08)
== END 2021-04-25 21:51 | disposition home or self-care (01) ==
LOC: ED 18:23
DX: G43.109 Migraine with aura, not intractable, without status migrainosus (principal)
CPT/HCPCS: J0595; J1200; J1885; J2405; J7030

== ENCOUNTER → 2021-05-02 | Outpatient (CLI) | payer OTHER ==
[~2021-05-02] MED LIST changes: +FERROUS SULFAT325 MG; +TIZANIDINE2 MG PO; +ZOFRAN ODT4 MG PO
[2021-05-02 13:40] VITALS: BP 124/70
== END ==
LOC: RAD 15:07
DX: G43.909 Migraine, unspecified, not intractable, without status migrainosus (principal); Z96.82 Presence of neurostimulator

== ENCOUNTER → 2021-05-06 | Outpatient (CLI) | payer OTHER ==
[2021-05-02 15:22] VITALS: BP 124/75
[2021-05-06 17:01] LABS: HEMATOCRIT 40.8 % (37.0-47.0); HEMOGLOBIN 12.7 g/dL (12.5-16.0); MEAN PLATELET VOLUME 10.8 fl (7.4-10.4); RED BLOOD COUNT 5.09 M/mm3 (4.10-5.30); RED CELL DISTRIBUTION WIDTH 19.6 % (11.5-14.5); WHITE BLOOD COUNT 14.4 K/mm3 (4.8-10.8)
[2021-05-06 17:06] LABS: ALBUMIN 3.4 g/dL (3.5-5.0)
[2021-05-06 17:07] LABS: CALCIUM 8.6 mg/dL (8.3-10.5)
[2021-05-06 17:08] LABS: TOTAL PROTEIN 6.3 g/dL (6.4-8.3)
[2021-05-06 17:10] LABS: TOTAL BILIRUBIN 0.5 mg/dL (0.2-1.2)
== END ==
LOC: LAB 13:25
PROVIDERS: Family Medicine
DX: G44.51 Hemicrania continua (principal)

== ENCOUNTER 2021-05-18 12:17 | Emergency (ER) | payer OTHER ==
[~2021-05-18 12:17] MED LIST changes: -ZOFRAN ODT4 MG PO
[2021-05-18 14:16] VITALS: BP 101/68
== END 2021-05-18 16:43 | disposition home or self-care (01) ==
LOC: ED 12:17
DX: G44.59 Other complicated headache syndrome (principal); Z79.899 Other long term (current) drug therapy
CPT/HCPCS: J0595; J1200; J1885; J7030

== ENCOUNTER → 2021-05-20 | Outpatient (CLI) | payer OTHER ==
[~2021-05-20] MED LIST changes: +ZOFRAN ODT4 MG PO
[2021-05-20 14:25] LABS: HEMATOCRIT 41.7 % (37.0-47.0); MEAN PLATELET VOLUME 9.9 fl (7.4-10.4); RED BLOOD COUNT 5.24 M/mm3 (4.10-5.30); RED CELL DISTRIBUTION WIDTH 17.9 % (11.5-14.5); WHITE BLOOD COUNT 13.7 K/mm3 (4.8-10.8)
[2021-05-20 14:35] LABS: ALBUMIN 3.4 g/dL (3.5-5.0)
[2021-05-20 14:36] LABS: CALCIUM 8.7 mg/dL (8.3-10.5)
[2021-05-20 14:37] LABS: TOTAL PROTEIN 6.6 g/dL (6.4-8.3)
[2021-05-20 14:39] LABS: TOTAL BILIRUBIN 0.8 mg/dL (0.2-1.2)
== END ==
LOC: LAB 13:28
PROVIDERS: Family Medicine
DX: K46.9 Unspecified abdominal hernia without obstruction or gangrene (principal)

== ENCOUNTER → 2021-06-03 | Outpatient (CLI) | payer OTHER ==
[2021-06-03 14:22] LABS: HEMATOCRIT 40.5 % (37.0-47.0); HEMOGLOBIN 12.8 g/dL (12.5-16.0); MEAN PLATELET VOLUME 9.9 fl (7.4-10.4); RED BLOOD COUNT 5.03 M/mm3 (4.10-5.30); RED CELL DISTRIBUTION WIDTH 17.1 % (11.5-14.5); WHITE BLOOD COUNT 13.5 K/mm3 (4.8-10.8)
[2021-06-03 14:31] LABS: ALBUMIN 3.4 g/dL (3.5-5.0)
[2021-06-03 14:32] LABS: POTASSIUM 3.9 mmol/L (3.5-5.1)
[2021-06-03 14:33] LABS: CALCIUM 9.1 mg/dL (8.3-10.5)
[2021-06-03 14:34] LABS: TOTAL PROTEIN 6.2 g/dL (6.4-8.3)
[2021-06-03 14:36] LABS: TOTAL BILIRUBIN 0.6 mg/dL (0.2-1.2)
== END ==
LOC: AMSURD 05-15 12:51 → LAB 13:23
PROVIDERS: Family Medicine
DX: Z79.899 Other long term (current) drug therapy (principal)

== ENCOUNTER 2021-06-06 13:36 | Outpatient (RCR) | payer OTHER ==
[2021-03-09 10:06] VITALS: BP 115/66
[2021-03-12 16:08] VITALS: BP 114/77
[2021-03-15 16:38] VITALS: BP 124/75
[2021-03-15 18:23] VITALS: BP 116/68
[2021-03-19 09:55] VITALS: BP 128/80
[2021-03-22 16:00] VITALS: BP 122/66
[2021-03-22 18:02] VITALS: BP 103/55
[2021-03-26 15:30] VITALS: BP 126/76
[2021-03-29 17:20] VITALS: BP 117/74
[2021-03-29 19:14] VITALS: BP 124/74
[2021-04-02 13:15] VITALS: BP 140/85
[2021-04-09 16:06] VITALS: BP 138/85
[2021-04-12 15:55] VITALS: BP 140/82
[2021-04-12 17:43] VITALS: BP 120/71
[2021-04-16 16:35] VITALS: BP 126/83
[2021-04-19 13:50] VITALS: BP 118/70
[2021-04-19 15:42] VITALS: BP 105/67
[2021-04-23 14:09] VITALS: BP 127/70
[2021-04-23 14:37] VITALS: BP 127/70
[2021-04-26 13:30] VITALS: BP 121/76
[2021-04-26 15:21] VITALS: BP 116/72
[2021-04-30 13:45] VITALS: BP 116/70
[2021-05-02 13:40] VITALS: BP 124/70
[2021-05-02 15:22] VITALS: BP 124/75
[2021-05-06 14:46] VITALS: BP 133/87
--- NOTE | 2021-05-06 14:50 | NUR ---
Accessed port x2, in attempt to get blood return. [place] the needle hit the metal backing. Flushes easily. Pt feels the needle is in place since there is no burning or swelling. Forcefully flushed the port with 10 syringes of NS. Still no blood return. Continued with today's tx. Lab in to draw blood as ordered. Pt is requesting Toradol for headache pain 07/09, since her pain pump isnt working and she cannot get into the doctor until June. Lights dimmed in room and pt resting while awaiting Toradol order.
[2021-05-10 11:11] VITALS: BP 109/73
[2021-05-10 13:00] VITALS: BP 110/75
[2021-05-13 15:50] VITALS: BP 122/66
[2021-05-15 13:29] VITALS: BP 115/75
[2021-05-20 14:28] VITALS: BP 147/88
[2021-05-23 14:25] VITALS: BP 107/67
[2021-05-23 15:49] VITALS: BP 131/78
[2021-05-27 13:30] VITALS: BP 137/92
[2021-05-30 13:36] VITALS: BP 143/94
[2021-05-30 15:28] VITALS: BP 122/75
[2021-06-03 13:33] VITALS: BP 127/78
[2021-06-03 15:54] VITALS: BP 107/70
[~2021-06-06 13:36] MED LIST changes: -ZOFRAN ODT4 MG PO
[2021-06-06 13:46] VITALS: BP 138/82
[2021-06-08] MEDS ORDERED: ZOFRAN ODT4 MG PO (13:12)
== END 2021-06-07 | disposition home or self-care (01) ==
LOC: AMSURD
DX: G44.51 Hemicrania continua (principal)
CPT/HCPCS: J1200; J1644; J1885; J2405; J3475; J7040

== ENCOUNTER 2021-06-08 10:43 | Emergency (ER) | payer OTHER ==
[2021-06-08] MEDS ORDERED: ZOFRAN ODT4 MG PO (13:12)
[2021-06-08 14:10] VITALS: BP 127/83
== END 2021-06-08 14:11 | disposition home or self-care (01) ==
LOC: ED 10:43
DX: G44.59 Other complicated headache syndrome (principal); M79.7 Fibromyalgia; F41.9 Anxiety disorder, unspecified; Z79.899 Other long term (current) drug therapy
CPT/HCPCS: J0595; J1200; J1644; J7030

== ENCOUNTER → 2021-06-24 | Outpatient (CLI) | payer OTHER ==
[~2021-06-24] MED LIST changes: +ZOFRAN ODT4 MG PO
[2021-06-24 14:06] LABS: HEMATOCRIT 40.3 % (37.0-47.0); HEMOGLOBIN 12.6 g/dL (12.5-16.0); MEAN PLATELET VOLUME 10.7 fl (7.4-10.4); RED BLOOD COUNT 4.88 M/mm3 (4.10-5.30); RED CELL DISTRIBUTION WIDTH 16.2 % (11.5-14.5); WHITE BLOOD COUNT 13.9 K/mm3 (4.8-10.8)
[2021-06-24 14:09] LABS: ALBUMIN 3.5 g/dL (3.5-5.0)
[2021-06-24 14:10] LABS: POTASSIUM 3.9 mmol/L (3.5-5.1)
[2021-06-24 14:11] LABS: CALCIUM 9.2 mg/dL (8.3-10.5)
[2021-06-24 14:12] LABS: TOTAL PROTEIN 6.5 g/dL (6.4-8.3)
[2021-06-24 14:14] LABS: TOTAL BILIRUBIN 0.4 mg/dL (0.2-1.2)
== END ==
LOC: LAB 12:59
PROVIDERS: Family Medicine
DX: Z01.89 Encounter for other specified special examinations (principal)

== ENCOUNTER → 2021-08-01 | Outpatient (CLI) | payer OTHER ==
[2021-08-01 14:58] LABS: HEMATOCRIT 37.9 % (37.0-47.0); HEMOGLOBIN 11.8 g/dL (12.5-16.0); MEAN PLATELET VOLUME 10.4 fl (7.4-10.4); RED BLOOD COUNT 4.45 M/mm3 (4.10-5.30); RED CELL DISTRIBUTION WIDTH 15.1 % (11.5-14.5); WHITE BLOOD COUNT 10.8 K/mm3 (4.8-10.8)
== END ==
LOC: LAB 14:02
PROVIDERS: Family Medicine
DX: I82.811 Embolism and thrombosis of superficial veins of right lower extremity (principal)

== ENCOUNTER → 2021-08-03 | Outpatient (CLI) | payer OTHER ==
[2021-08-03 11:10] LABS: PROTHROMBIN TIME 27.6 SECONDS (9.0-12.0)
== END ==
LOC: LAB 10:15
PROVIDERS: Family Medicine
DX: I82.811 Embolism and thrombosis of superficial veins of right lower extremity (principal)

== ENCOUNTER → 2021-08-04 | Outpatient (CLI) | payer OTHER ==
[2021-08-04 08:55] LABS: PROTHROMBIN TIME 29.2 SECONDS (9.0-12.0)
== END ==
LOC: LAB 08:14
PROVIDERS: Family Medicine
DX: I82.811 Embolism and thrombosis of superficial veins of right lower extremity (principal)

== ENCOUNTER → 2021-08-05 | Outpatient (CLI) | payer OTHER ==
[2021-08-05 10:33] LABS: PROTHROMBIN TIME 32.4 SECONDS (9.0-12.0)
== END ==
LOC: LAB 08:39
PROVIDERS: Family Medicine
DX: I82.811 Embolism and thrombosis of superficial veins of right lower extremity (principal)

== ENCOUNTER → 2021-08-06 | Outpatient (CLI) | payer OTHER ==
[2021-08-06 12:22] LABS: PROTHROMBIN TIME 29.7 SECONDS (9.0-12.0)
== END ==
LOC: LAB 11:48
PROVIDERS: Family Medicine
DX: I82.811 Embolism and thrombosis of superficial veins of right lower extremity (principal)

== ENCOUNTER → 2021-08-08 | Outpatient (CLI) | payer OTHER ==
[2021-08-08 16:07] LABS: PROTHROMBIN TIME 43.5 SECONDS (9.0-12.0)
== END ==
LOC: LAB 14:24
PROVIDERS: Family Medicine
DX: I82.811 Embolism and thrombosis of superficial veins of right lower extremity (principal)

== ENCOUNTER → 2021-08-10 | Outpatient (CLI) | payer OTHER | LOC: LAB 08:47 | PROVIDERS: Family Medicine | DX: I82.811 Embolism and thrombosis of superficial veins of right lower extremity (principal) ==

== ENCOUNTER → 2021-08-12 | Outpatient (CLI) | payer OTHER ==
[2021-08-12 14:38] LABS: PROTHROMBIN TIME 17.2 SECONDS (9.0-12.0)
[2021-08-12 15:46] LABS: HEMATOCRIT 42.5 % (37.0-47.0); HEMOGLOBIN 13.2 g/dL (12.5-16.0); MEAN PLATELET VOLUME 13.2 fl (7.4-10.4); RED BLOOD COUNT 5.16 M/mm3 (4.10-5.30); RED CELL DISTRIBUTION WIDTH 14.8 % (11.5-14.5)
[2021-08-12 16:50] LABS: POTASSIUM 4.1 mmol/L (3.5-5.1)
[2021-08-12 16:51] LABS: CALCIUM 10.3 mg/dL (8.3-10.5)
[2021-08-12 16:53] LABS: TOTAL PROTEIN 7.6 g/dL (6.4-8.3)
[2021-08-12 16:54] LABS: TOTAL BILIRUBIN 0.6 mg/dL (0.2-1.2)
== END ==
LOC: LAB 13:12
PROVIDERS: Family Medicine
DX: I82.811 Embolism and thrombosis of superficial veins of right lower extremity (principal)

== ENCOUNTER → 2021-08-26 | Outpatient (CLI) | payer OTHER ==
[2021-08-26 16:38] LABS: HEMATOCRIT 36.3 % (37.0-47.0); HEMOGLOBIN 11.8 g/dL (12.5-16.0); MEAN PLATELET VOLUME 11.4 fl (7.4-10.4); RED BLOOD COUNT 4.48 M/mm3 (4.10-5.30); RED CELL DISTRIBUTION WIDTH 14.9 % (11.5-14.5); WHITE BLOOD COUNT 11.3 K/mm3 (4.8-10.8)
[2021-08-26 16:45] LABS: ALBUMIN 3.7 g/dL (3.5-5.0); POTASSIUM 3.5 mmol/L (3.5-5.1)
[2021-08-26 16:46] LABS: CALCIUM 9.5 mg/dL (8.3-10.5)
[2021-08-26 16:47] LABS: TOTAL PROTEIN 6.8 g/dL (6.4-8.3)
[2021-08-26 16:49] LABS: TOTAL BILIRUBIN 0.8 mg/dL (0.2-1.2)
== END ==
LOC: LAB 16:20
PROVIDERS: Family Medicine
DX: Z01.89 Encounter for other specified special examinations (principal)

== ENCOUNTER 2021-09-02 15:37 | Outpatient (RCR) | payer OTHER ==
[2021-06-10 14:00] VITALS: BP 127/84
[2021-06-13 13:32] VITALS: BP 134/79
[2021-06-13 15:38] VITALS: BP 128/76
[2021-06-24 13:02] VITALS: BP 126/82
[2021-06-24 15:33] VITALS: BP 132/81
[2021-06-27 12:53] VITALS: BP 115/73
[2021-06-27 14:36] VITALS: BP 113/71
[2021-07-04 13:00] VITALS: BP 134/77
[2021-07-04 14:43] VITALS: BP 120/78
[2021-07-11 13:00] VITALS: BP 95/60
[2021-07-11 15:45] VITALS: BP 103/65
[2021-07-22 13:32] VITALS: BP 134/90
[2021-08-01 15:18] VITALS: BP 128/67
[2021-08-05 09:16] VITALS: BP 127/84
[2021-08-12 14:38] VITALS: BP 137/93
[2021-08-15 16:16] VITALS: BP 129/85
[2021-08-19 13:32] VITALS: BP 132/81
[2021-08-19 15:07] VITALS: BP 149/76
[2021-08-26 16:27] VITALS: BP 128/87
[~2021-09-02] VITALS: Ht 167.6 cm; Wt 91.0 kg
[2021-09-02 16:00] VITALS: BP 124/78
[2021-09-02 17:45] VITALS: BP 158/93
== END 2021-09-08 | disposition home or self-care (01) ==
LOC: AMSURD
DX: G44.51 Hemicrania continua (principal)
CPT/HCPCS: J1200; J1644; J1885; J2405; J3475

== ENCOUNTER → 2021-09-16 | Outpatient (CLI) | payer OTHER ==
[2021-09-16 14:17] LABS: HEMOGLOBIN 13.4 g/dL (12.5-16.0); MEAN PLATELET VOLUME 11.8 fl (7.4-10.4); RED BLOOD COUNT 5.34 M/mm3 (4.10-5.30); RED CELL DISTRIBUTION WIDTH 14.9 % (11.5-14.5); WHITE BLOOD COUNT 14.2 K/mm3 (4.8-10.8)
[2021-09-16 14:21] LABS: ALBUMIN 3.9 g/dL (3.5-5.0); POTASSIUM 3.5 mmol/L (3.5-5.1)
[2021-09-16 14:22] LABS: CALCIUM 9.6 mg/dL (8.3-10.5)
[2021-09-16 14:23] LABS: TOTAL PROTEIN 7.3 g/dL (6.4-8.3)
[2021-09-16 14:25] LABS: TOTAL BILIRUBIN 0.9 mg/dL (0.2-1.2)
== END ==
LOC: LAB 13:08
PROVIDERS: Family Medicine
DX: G44.51 Hemicrania continua (principal)

== ENCOUNTER 2021-09-23 13:07 | Outpatient (RCR) | payer OTHER ==
[2021-09-09 11:52] VITALS: BP 139/86
[2021-09-09 13:13] VITALS: BP 126/76
[2021-09-16 13:30] VITALS: BP 132/89
[~2021-09-23] VITALS: Ht 167.6 cm; Wt 91.0 kg
[2021-09-23 13:35] VITALS: BP 113/81
== END 2021-12-08 | disposition home or self-care (01) ==
LOC: AMSURD
DX: G44.51 Hemicrania continua (principal)
CPT/HCPCS: J1200; J1644; J1885; J3475

== ENCOUNTER 2022-12-23 17:19 | Emergency (ER) | payer OTHER ==
[~2022-12-23] VITALS: Ht 167.6 cm; Wt 91.0 kg
[2022-12-23 22:15] VITALS: BP 122/82
== END 2022-12-23 22:12 | disposition home or self-care (01) ==
LOC: ED 17:19
DX: G43.909 Migraine, unspecified, not intractable, without status migrainosus (principal)
CPT/HCPCS: J1200; J1885; J2550; J3010; J7030